=== PATIENT | male | born 1945 | race Caucasian/White ===

== ENCOUNTER → 2016-12-04 | Outpatient (CLI) | payer MEDICARE, BC ==
--- NOTE | 2016-12-05 06:54 | US ---
EXAMINATION TYPE: US kidneys/renal and bladder DATE OF EXAM: 12/04/2016 COMPARISON: NONE CLINICAL HISTORY: R94.4 Abnormal Results Of Function Study Of Kidney. EXAM MEASUREMENTS: Right Kidney: 11.9 x 5.7 x 4.8 cm Left Kidney: 12.9 x 5.8 x 4.7 cm Right Kidney: no evidence of hydronephrosis Left Kidney: enlarged Bladder: diverticula noted Bilateral Jets seen: no IMPRESSION: 1. NO EVIDENCE OF HYDRONEPHROSIS. 2. LEFT-SIDED HUTCH-LIKE DIVERTICULUM OF THE BLADDER.
== END | disposition home or self-care (01) ==
LOC: RADUSWWP 15:27
PROVIDERS: ATTEND Internal Medicine
DX: N32.3 Diverticulum of bladder (principal)
CPT/HCPCS: 76770

== ENCOUNTER → 2016-12-18 | Outpatient (CLI) | payer MEDICARE, BC ==
--- NOTE | 2016-12-18 10:58 | MR ---
EXAMINATION TYPE: MR brain and iac wo/w con DATE OF EXAM: 12/18/2016 COMPARISON: NONE HISTORY: Hearing loss, Acoustic Neuroma TECHNIQUE: Multiplanar, multisequence images of the brain and brainstem is performed without and with IV contras t, utilizing 20 mL intravenous MultiHance. Small [id number] high-resolution images obtained through the internal auditory canals. FINDINGS: Diffusion weighted images demonstrate no evidence of a recent infarct or other diffusion ab normality. There is no extra-axial fluid collection. Periventricular white matter shows confluent an d scattered hyperintensities on inversion recovery and T2-weighted sequences. Some increased signal a lso present within the laurent bilaterally. Cortical atrophy is noted. The ventricular system and cister nal spaces are normal in size and appearance. Midline structures demonstrate normal morphology. The craniocervical junction appears within normal limits. Post contrast images demonstrate no abnormal enhancement. The dural venous sinuses appear pa tent. The visualized sinuses are remarkable for inflammatory change within the bilateral maxillary si nus, sphenoid sinus, ethmoid air cells, mucosal thickening in the frontal sinus, inflammatory change in the mastoid air cells on the left and the globes are intact. There is no cerebellopontine angle mass, no abnormal enhancement along the internal auditory canals. Fluid signal present in the maxilla along the midline may represent embryologic remnant, possible whitney opalatine cyst measuring 12 mm anteriorly. IMPRESSION: Nonspecific white matter demyelination may be due to chronic small vessel ischemia. Sinus disease, correlate for mastoiditis on the left. Additional findings above
== END | disposition home or self-care (01) ==
LOC: RADMRIMAIN 08:27
PROVIDERS: ATTEND Otolaryngology
DX: D33.3 Benign neoplasm of cranial nerves (principal)
CPT/HCPCS: 70553

== ENCOUNTER → 2016-12-25 | Outpatient (CLI) | payer MEDICARE, BC ==
[2016-12-25 09:42] LABS: Blood Urea Nitrogen 17 mg/dL (9-20); Non-African American GFR(MDRD) >60 (>60 ml/min/1.73 sqM)
== END | disposition home or self-care (01) ==
LOC: LABWHC1 08:49
PROVIDERS: ATTEND Ophthalmology
DX: H53.469 Homonymous bilateral field defects, unspecified side (principal)
CPT/HCPCS: 36415; 82565; 84520

== ENCOUNTER 2017-02-16 08:04 | Inpatient (IN) | payer MEDICARE, BC ==
[2017-02-16] MEDS ORDERED: ONDANSETRON 4 MG/2 ML VIAL IVP STA (08:18)
[2017-02-16] MEDS ORDERED: SODIUM CHLORIDE 0.9% 500 ML IV STA (08:18)
[2017-02-16] MEDS ORDERED: RX INFO: IV CONTRAST WAS GIVEN 1 EACH MISC MISCELLANE PRN (08:18)
--- NOTE | 2017-02-16 08:25 | ED ---
General Adult HPI - General Chief complaint: Abdominal Pain Stated complaint: Abd Pain Time Seen by Provider: 02/16/17 08:05 Source: patient, RN notes reviewed Mode of arrival: ambulatory Limitations: no limitations - History of Present Illness Initial comments: This is a 71-year-old male presents to the emergency department complaining of right mid abdominal pain. Patient states started about a week ago and lasted about a day and then went away. Patient states last night he started having the same pain on the right mid abdomen and it continues his morning. Patient states it makes him nauseated and he vomited one time. Patient denies any diarrhea. Patient states his last bowel movement was yesterday. Patient denies any fever or chills. Patient states she's lost his appetite and was unable to eat dinner last night. Patient denies any chest pain shortness of breath or difficulty breathing. Patient denies any lightheadedness or dizziness. Patient states he had cholecystectomy done in October. - Related Data Home Medications Medication Instructions Recorded Confirmed Allopurinol [Zyloprim] 300 mg PO DAILY 02/16/17 02/16/17 Altoprev 40 mg PO DAILY 02/16/17 02/16/17 Cyanocobalamin (Vitamin B-12) 1,000 mcg PO DAILY 02/16/17 02/16/17 [Vitamin B-12] Multivitamins, Thera [Multivitamin 1 tab PO DAILY 02/16/17 02/16/17 (formulary)] Timolol [Betimol 0.5% Ophth Soln] 1 drop BOTH EYES DAILY 02/16/17 02/16/17 Triamcinolone Acetonide [Nasacort] 1 - 2 spray EA NOSTRIL DAILY 02/16/17 Allergies Allergy/AdvReac Type Severity Reaction Status Date / Time ciprofloxacin [From Cipro] Allergy Rash/Hives Verified 02/16/17 08:24 Review of Systems ROS Statement: Those systems with pertinent positive or pertinent negative responses have been documented in the HPI. ROS Other: All systems not noted in ROS Statement are negative. Past Medical History Past Medical History: Diabetes Mellitus History of Any Multi-Drug Resistant Organisms: None Reported Past Surgical History: Cholecystectomy Additional Past Surgical History / Comment(s): ear Past Psychological History: No Psychological Hx Reported Smoking Status: Former smoker Past Alcohol Use History: None Reported Past Drug Use History: None Reported General Exam - General Exam Comments Initial Comments: GENERAL: Patient is well-developed and well-nourished. Patient is nontoxic and well- hydrated and is in mild distress. ENT: Neck is soft and supple. No significant lymphadenopathy is noted. Oropharynx is clear. Moist mucous membranes. Neck has full range of motion without eliciting any pain. EYES: The sclera were anicteric and conjunctiva were pink and moist. Extraocular movements were intact and pupils were equal round and reactive to light. Eyelids were unremarkable. PULMONARY: Unlabored respirations. Good breath sounds bilaterally. No audible rales rhonchi or wheezing was noted. CARDIOVASCULAR: There is a regular rate and rhythm without any murmurs gallops or rubs. ABDOMEN: Abdominal tenderness in the right mid abdomen no rebound SKIN: Skin is clear with no lesions or rashes and otherwise unremarkable. NEUROLOGIC: Patient is alert and oriented x3. Cranial nerves II through XII are grossly intact. Motor and sensory are also intact. Normal speech, volume and content. Symmetrical smile. MUSCULOSKELETAL: Normal extremities with adequate strength and full range of motion. No lower extremity swelling or edema. No calf tenderness. LYMPHATICS: No significant lymphadenopathy is noted PSYCHIATRIC: Normal psychiatric evaluation. Normal interpersonal interactions appears functionally intact in deals appropriately with others. No signs of depression. No signs of anxiety. Limitations: no limitations Course Vital Signs 02/16/17 02/16/17 02/16/17 08:06 08:18 10:48 Temperature 97.6 F Pulse Rate 110 H 106 H 101 H Respiratory 18 17 17 Rate Blood Pressure 79/53 148/87 138/83 O2 Sat by Pulse 98 98 99 Oximetry Medical Decision Making - Medical Decision Making I spoke with Dr. Posey he accepted the patient and I counseled Dr. Johnson for medical management - Lab Data Result diagrams: 02/16/17 08:31 02/16/17 08:31 Lab Results 02/16/17 02/16/17 02/16/17 Range/Units 08:31 08:31 08:31 WBC 16.6 H (3.8-10.6) k/uL RBC 4.68 (4.30-5.90) m/uL Hgb 13.9 (13.0-17.5) gm/dL Hct 41.0 (39.0-53.0) % MCV 87.6 (80.0-100.0) fL MCH 29.6 (25.0-35.0) pg MCHC 33.8 (31.0-37.0) g/dL RDW 13.2 (11.5-15.5) % Plt Count 293 (150-450) k/uL Neutrophils % 86 % Lymphocytes % 8 % Monocytes % 4 % Eosinophils % 1 % Basophils % 0 % Neutrophils # 14.3 H (1.3-7.7) k/uL Lymphocytes # 1.2 (1.0-4.8) k/uL Monocytes # 0.7 (0-1.0) k/uL Eosinophils # 0.2 (0-0.7) k/uL Basophils # 0.1 (0-0.2) k/uL Sodium 138 (137-145) mmol/L Potassium 4.6 (3.5-5.1) mmol/L Chloride 103 (98-107) mmol/L Carbon Dioxide 19 L (22-30) mmol/L Anion Gap 16 mmol/L BUN 15 (9-20) mg/dL Creatinine 1.05 (0.66-1.25) mg/dL Est GFR (MDRD) Af Amer >60 (>60 ml/min/1.73 sqM) Est GFR (MDRD) Non-Af >60 (>60 ml/min/1.73 sqM) Glucose 158 H (74-99) mg/dL Plasma Lactic Acid Riccardo 1.5 (0.7-2.0) mmol/L Calcium 9.9 (8.4-10.2) mg/dL Total Bilirubin 1.1 (0.2-1.3) mg/dL AST 25 (17-59) U/L ALT 28 (21-72) U/L Alkaline Phosphatase 89 (38-126) U/L Total Protein 7.4 (6.3-8.2) g/dL Albumin 4.3 (3.5-5.0) g/dL Amylase 72 (30-110) U/L Lipase 192 (23-300) U/L Disposition Clinical Impression: Duodenal ulcer perforation Disposition: ADMITTED IP TO THIS [facility] Referrals: Israel Johnson MD [Primary Care Provider] - 1-2 days Time of Disposition: 11:00
[2017-02-16 09:03] LABS: ALT 28 U/L (21-72); AST 25 U/L (17-59); Alkaline Phosphatase 89 U/L (38-126); Amylase 72 U/L (30-110); Anion Gap 16 mmol/L; Blood Urea Nitrogen 15 mg/dL (9-20); Calcium 9.9 mg/dL (8.4-10.2); Carbon Dioxide 19 mmol/L (22-30); Chloride 103 mmol/L (98-107); Glucose 158 mg/dL (74-99); Non-African American GFR(MDRD) >60 (>60 ml/min/1.73 sqM); Potassium 4.6 mmol/L (3.5-5.1); Sodium 138 mmol/L (137-145); Total Bilirubin 1.1 mg/dL (0.2-1.3); Total Protein 7.4 g/dL (6.3-8.2)
[2017-02-16 09:40] LABS: Basophils # (A) 0.1 k/uL (0-0.2); Basophils % (A) 0 %; CH 29.1; CHCM 33.4; Eosinophils # (A) 0.2 k/uL (0-0.7); Eosinophils % (A) 1 %; HDW 2.91; HGB 13.9 gm/dL (13.0-17.5); Luc # (Auto) 0.09; Luc % (Auto) 1; Lymphocytes # (A) 1.2 k/uL (1.0-4.8); Lymphocytes % (A) 8 %; MCH 29.6 pg (25.0-35.0); MCHC 33.8 g/dL (31.0-37.0); MCV 87.6 fL (80.0-100.0); Monocytes # (A) 0.7 k/uL (0-1.0); Monocytes % (A) 4 %; Neutrophils # (A) 14.3 k/uL (1.3-7.7); Neutrophils % (A) 86 %; RBC 4.68 m/uL (4.30-5.90); RDW 13.2 % (11.5-15.5); WBC 16.6 k/uL (3.8-10.6); WBC (Perox) 16.06
[2017-02-16] MEDS ORDERED: PIPERACILLIN-TAZOBACTAM 3.375 GM in DEXTROSE/WATER 1 50ML.BAG IVPB STA (10:45)
--- NOTE | 2017-02-16 10:46 | CT ---
EXAMINATION TYPE: CT abdomen pelvis w con DATE OF EXAM: 02/16/2017 COMPARISON: NONE HISTORY: right sided abdominal pain X 1 week. hx of marguerite in October. CT DLP: 1829.1 mGycm CONTRAST: CT scan of the abdomen and pelvis is performed without Oral Contrast and with IV Contrast, patient in jected with 100 mL of Omnipaque 300. FINDINGS: LUNG BASES-: No visible nodule. No infiltrate. LIVER/GB: Cholecystectomy clips identified. Ascites about the liver edge. No space occupying hepati c lesion. Biliary tree is of normal caliber. PANCREAS: No inflammation. No distinct mass. SPLEEN: No splenic enlargement. No lesion seen. ADRENALS: No nodule. No thickening. KIDNEYS/BLADDER: No hydronephrosis. No nephrolithiasis. No disctinct renal mass. Urinary bladder g rossly unremarkable. BOWEL: Noted is wall thickening and ill-definition of the descending portion of the duodenum. There i s adjacent fluid noted as well as 2 or 3 bubbles of free air within the gallbladder fossa. The gallbl adder is surgically absent. In addition there is a bubble of free air identified on image 16 anterior to the liver. Ulcer disease with small perforation difficult to exclude. Strict clinical correlation is advised. The colon and remainder small bowel are within normal limits. GENITAL ORGANS: No gross abnormality. LYMPH NODES: No greater than 1cm abdominal or pelvic lymph nodes are appreciated. AORTA: No significant abnormality. OSSEOUS STRUCTURES: No significant abnormality is seen. OTHER: Free fluid is noted within the pelvis. Fat-containing umbilical hernia. IMPRESSION: 1. Duodenal ulcer disease with small perforation is suspected. As noted there are several small foci of free air. 2. Free fluid as discussed. Comment: These findings were discussed with Dr. Bell at the workstation.
[2017-02-16] MEDS ORDERED: PANTOPRAZOLE 40 MG/10 ML VIAL IVP STA (10:50)
[2017-02-16] MEDS ORDERED: SODIUM CHLORIDE 0.9% 1,000 ML IV ONE ×2 (11:00→11:02)
[2017-02-16] MEDS ORDERED: ONDANSETRON 4 MG/2 ML VIAL IVP PRN (11:03)
[2017-02-16] MEDS: HYDROmorphone 1 MG/ML 1 ML SYRINGE IVP PRN ×2 (11:46→20:34)
--- NOTE | 2017-02-16 14:34 | P.GSHP ---
History of Present Illness H&P Date: 02/16/17 Chief Complaint: Abdominal pain 71-year-old male presented to the emergency room with a chief complaint of developing right upper quadrant abdominal pain radiating to the midsternal area. Patient puts his hands to the right upper abdominal wall as to the reference point is to were the pain is. Patient stated the pain started about a week ago was intermittent would come and go. Patient states that the night before coming into the emergency room he woke up in the middle of the night the pain was symptomatic felt nauseated and vomited. Stated there was no change in bowel habits. Patient states was no fever chills. Given the above clinical presentation the patient did present to the emergency room to be evaluated. Patient states he lives in [place] 7 months out of the year. He states in October of this year he did have a lap cholecystectomy. Patient states he was told that he had gallstones and they did remove the gallstones with the procedure. Patient states he's also being seen by orthopedic service in [place] and plans on returning to [place] to have bilateral knee replacements done in the fall. Patient states he was told by the orthopedic surgeon in [place] that he needed to lose 50 pounds before he would agree to do the knee surgery. Patient states he did lose 50 pounds over summer intentionally. Patient states he takes no [id number] analgesics does use Zyloprim 3 mg daily. Patient states his last colonoscopy was approximately 3 years ago done in [place] and was told there were no acute findings. To the patient's knowledge she has never had an EGD. Patient denies any prior episodes. In the emergency room the patient did have computed tomography scan of the abdomen pelvis with contrast reviewing the report it showed wall thickening and ill - definition of the descending portion of the duodenum. Adjacent fluid noted as well as 2 or 3 bubbles of free air within the gallbladder. Gallbladder surgically absent. Duodenal Ulcer area with small perforation difficult to exclude. A nasogastric tube is currently in place connected to intermittent suction moderate amount of bile secretions noted. Patient continues to report having abdominal discomfort. It is noted that the patient is hard of hearing wears no hearing aid - Review of Systems Comment: Essentially unremarkable except as mentioned in the present illness Past Medical History Past Medical History: Diabetes Mellitus History of Any Multi-Drug Resistant Organisms: None Reported Past Surgical History: Cholecystectomy Additional Past Surgical History / Comment(s): ear Past Psychological History: No Psychological Hx Reported Smoking Status: Former smoker Past Alcohol Use History: None Reported Past Drug Use History: None Reported Medications and Allergies Home Medications Medication Instructions Recorded Confirmed Type Allopurinol [Zyloprim] 300 mg PO DAILY 02/16/17 02/16/17 History Altoprev 40 mg PO DAILY 02/16/17 02/16/17 History Cyanocobalamin (Vitamin B-12) 1,000 mcg PO DAILY 02/16/17 02/16/17 History [Vitamin B-12] Multivitamins, Thera [Multivitamin 1 tab PO DAILY 02/16/17 02/16/17 History (formulary)] Timolol [Betimol 0.5% Ophth Soln] 1 drop BOTH EYES DAILY 02/16/17 02/16/17 History Triamcinolone Acetonide [Nasacort] 1 - 2 spray EA NOSTRIL DAILY 02/16/17 History Allergies Allergy/AdvReac Type Severity Reaction Status Date / Time ciprofloxacin [From Cipro] Allergy Rash/Hives Verified 02/16/17 08:24 Surgical - Exam Vital Signs Temp Pulse Resp BP Pulse Ox 97.6 F 110 H 18 79/53 98 02/16/17 08:06 02/16/17 08:06 02/16/17 08:06 02/16/17 08:06 02/16/17 08:06 GENERAL APPEARANCE: Pleasant 71-year-old male patient is alert, oriented 3, in no acute distress. Sitting up in bed VITAL SIGNS: Reviewed HEENT: Head is normocephalic and atraumatic. Pupils are equal and reactive. The nares are patent. Oropharynx is clear without lesions. NECK: Supple without lymphadenopathy. Traches midline. HEART: S1, S2. Regular rate and rhythm denying any chest pain no murmur noted. LUNGS: No crackles or wheezes are heard. Adequate air bilaterally no shortness of breath at rest or conversation no cough noted on room air sats greater than 95% ABDOMEN: Soft, diffuse tenderness across the abdominal wall bowel tones present , slightly distended with good bowel sounds. No peritoneal signs. No palpable organomegaly or masses. EXTREMITIES: Normal skin color and turgor. No cyanosis, rash, ulceration, clubbing or edema. Radial pedal pulses are 2/4 bilaterally. NEUROLOGICAL: No focal deficits. Strength and sensation are grossly intact. Results - Labs 02/16/17 08:31 02/16/17 08:31 Abnormal Lab Results - Last 24 Hours (Table) 02/16/17 02/16/17 Range/Units 08:31 08:31 WBC 16.6 H (3.8-10.6) k/uL Neutrophils # 14.3 H (1.3-7.7) k/uL Carbon Dioxide 19 L (22-30) mmol/L Glucose 158 H (74-99) mg/dL Diabetes panel 02/16/17 Range/Units 08:31 Sodium 138 (137-145) mmol/L Potassium 4.6 (3.5-5.1) mmol/L Chloride 103 (98-107) mmol/L Carbon Dioxide 19 L (22-30) mmol/L BUN 15 (9-20) mg/dL Creatinine 1.05 (0.66-1.25) mg/dL Glucose 158 H (74-99) mg/dL Calcium 9.9 (8.4-10.2) mg/dL AST 25 (17-59) U/L ALT 28 (21-72) U/L Alkaline Phosphatase 89 (38-126) U/L Total Protein 7.4 (6.3-8.2) g/dL Albumin 4.3 (3.5-5.0) g/dL Calcium panel 02/16/17 Range/Units 08:31 Calcium 9.9 (8.4-10.2) mg/dL Albumin 4.3 (3.5-5.0) g/dL Pituitary panel 02/16/17 Range/Units 08:31 Sodium 138 (137-145) mmol/L Potassium 4.6 (3.5-5.1) mmol/L Chloride 103 (98-107) mmol/L Carbon Dioxide 19 L (22-30) mmol/L BUN 15 (9-20) mg/dL Creatinine 1.05 (0.66-1.25) mg/dL Glucose 158 H (74-99) mg/dL Calcium 9.9 (8.4-10.2) mg/dL Adrenal panel 02/16/17 Range/Units 08:31 Sodium 138 (137-145) mmol/L Potassium 4.6 (3.5-5.1) mmol/L Chloride 103 (98-107) mmol/L Carbon Dioxide 19 L (22-30) mmol/L BUN 15 (9-20) mg/dL Creatinine 1.05 (0.66-1.25) mg/dL Glucose 158 H (74-99) mg/dL Calcium 9.9 (8.4-10.2) mg/dL Total Bilirubin 1.1 (0.2-1.3) mg/dL AST 25 (17-59) U/L ALT 28 (21-72) U/L Alkaline Phosphatase 89 (38-126) U/L Total Protein 7.4 (6.3-8.2) g/dL Albumin 4.3 (3.5-5.0) g/dL Assessment and Plan Plan: Impression Present on admission intractable nausea vomiting right mid abdominal pain suspect due to a duodenal ulcer disease with small perforation suspected per CAT scan abdomen and pelvis History of a recent lap cholecystectomy in October 2016 in [place] Hearing deficit Present on admission leukocytosis tachycardic hypotensive meets SIRS criteria early sepsis, ruled out unclear etiology Hypertension essential Plan Continue the nasal gastric tube connected to suction monitor the response Protonix 40 IV twice a day keep npo while NG tube in place Pain control DVT and GI prophylaxis IV fluid for hydration Repeat labs in the morning IV Zosyn as ordered Further recommendations pending will follow surgical course The above impression and plan of care have been discussed and directed by signing physician. Ramona Kan nurse practitioner acting as scribe for signing physician.
--- NOTE | 2017-02-16 16:25 | P.CONS ---
History of Present Illness - History of Present Illness History of present illness Patient is a 71-year-old gentleman who came to the emergency room earlier today with abdominal pain and episodes of nausea and vomiting. Apparently patient had an episode about a week ago of repeat nausea, vomiting and abdominal discomfort that cleared over a 1-2 day period. And generally subsided until the night before admission when the pain and nausea redeveloped. No definite fever or chills associated with this. He did have a bowel movement yesterday. No hematochezia, melena or hematemesis associated with this at this time. Past medical history The patient did have a cholecystectomy performed earlier this year while in [place] before his return to [place]. He does have history of elevated cholesterol. Glaucoma Previous tobacco usage but quit back in the . Patient has had elevated blood sugars in the past but has lost weight and they have improved History of previous asbestos exposure History of gout No history of myocardial infarction or stroke. History of colonoscopy back in 2014. Positive diverticuli but no polyps. Other surgeries include a mastoidectomy Also post uvulopalatopharyngectomy Medications: History of ALLERGY with rash/hives to ciprofloxacin Home medications: Allopurinol 300 mg daily Altoprev 40 mg daily Vitamin B12 thousand micrograms daily Multiple vitamins 1 a day Timolol 0.5% one drop in both eyes daily Nasacort one to 2 sprays in each nostril daily Review of systems: Patient denies any unusual headaches. No visual disturbances. No unusual cough or hemoptysis. Abdominal pain as stated in the history of present illness. Patient does have chronic knee pain. No unusual recurrent edema. Family history: Positive for diabetes and previous CVAs. Social history: Once again patient is a previous smoker. Quit in the Occasional alcohol use. Patient is retired and lives in [place] during the summer and [place] during the winter months with his . Physical examination: Temperature is 98.2 with a pulse of 98 and respirations 16. Blood pressure is 122/78 and he is 98% saturated on room air. Head and neck exam otherwise is unremarkable although there is presence of NG tube. Neck is supple without adenopathy, bruits or thyromegaly. Lungs are clear to auscultation. Heart tones are regular without murmurs. Abdomen reveals some right upper quadrant discomfort. No rebound or guarding noted. No masses. Rectal and scrotal exam deferred. No unusual distal extremity edema. Cranial nerves intact. No focal weakness noted. Patient is alert and oriented. Laboratory White count is elevated at 16.6 with a hemoglobin 13.9 and platelet count of 293. Sodium is 130 with potassium 4.6. Carbon dioxide is down at 19. BUN of 15 with creatinine 1.05 given him a GFR greater than 60. A random blood sugar is 158. Venous lactic acid level was 1.5 Other liver function tests along with a lipase and amylase were normal. A computed tomography scan of the abdomen and pelvis Suspected of small one ulcer with perforation with the presence of free air. Impressions: 1. Perforated duodenal ulcer with abdominal pain and refractory nausea and vomiting. 2. History of type 2 diabetes although controlled with diet and weight loss prior to admission. 3. History of cholecystectomy performed earlier this year in [place]. 4. History of obesity but with recent weight loss 5. Hypercholesterolemia 6. Previous surgeries as stated above. 7. History of previous asbestos exposure. Plans: Patient is on IV hydration along with antibiotics and analgesics as needed. He has been seen and evaluated by surgery. He will continue with NG tube suction. We will also add Accu-Cheks and coverage if needed. Discussed with the patient and at bedside along with the nursing staff. Dr. Chacho Medina on-call for me over the weekend if any concerns or problems should arise. Past Medical History Past Medical History: Diabetes Mellitus History of Any Multi-Drug Resistant Organisms: None Reported Past Surgical History: Cholecystectomy Additional Past Surgical History / Comment(s): ear Past Psychological History: No Psychological Hx Reported Smoking Status: Former smoker Past Alcohol Use History: None Reported Past Drug Use History: None Reported Medications and Allergies Home Medications Medication Instructions Recorded Confirmed Type Allopurinol [Zyloprim] 300 mg PO DAILY 02/16/17 02/16/17 History Altoprev 40 mg PO DAILY 02/16/17 02/16/17 History Cyanocobalamin (Vitamin B-12) 1,000 mcg PO DAILY 02/16/17 02/16/17 History [Vitamin B-12] Multivitamins, Thera [Multivitamin 1 tab PO DAILY 02/16/17 02/16/17 History (formulary)] Timolol [Betimol 0.5% Ophth Soln] 1 drop BOTH EYES DAILY 02/16/17 02/16/17 History Triamcinolone Acetonide [Nasacort] 1 - 2 spray EA NOSTRIL DAILY 02/16/17 History Allergies Allergy/AdvReac Type Severity Reaction Status Date / Time ciprofloxacin [From Cipro] Allergy Rash/Hives Verified 02/16/17 08:24 Physical Exam Vitals: Vital Signs Temp Pulse Pulse Resp BP BP Pulse Ox 02/16/17 16:02 98.2 F 98 16 122/78 98 02/16/17 15:13 98.5 F 93 18 105/57 98 02/16/17 13:20 101 H 19 135/68 96 02/16/17 12:12 98.1 F 99 16 104/64 97 02/16/17 10:48 101 H 17 138/83 99 02/16/17 08:18 106 H 17 148/87 98 02/16/17 08:06 97.6 F 110 H 18 79/53 98 Intake and Output 02/16/17 02/16/17 02/16/17 06:59 14:59 22:59 Other: Weight 104.326 kg Patient Weight 02/17/17 06:59 Weight 104.326 kg Results CBC & Chem 7: 02/16/17 08:31 02/16/17 08:31 Labs: Abnormal Lab Results - Last 24 Hours (Table) 02/16/17 02/16/17 Range/Units 08:31 08:31 WBC 16.6 H (3.8-10.6) k/uL Neutrophils # 14.3 H (1.3-7.7) k/uL Carbon Dioxide 19 L (22-30) mmol/L Glucose 158 H (74-99) mg/dL
[2017-02-16] MEDS: PANTOPRAZOLE 40 MG/10 ML VIAL IVP SCH (19:55)
[2017-02-16] MEDS: PIPERACILLIN-TAZOBACTAM 3.375 GM in DEXTROSE/WATER 1 50ML.BAG IVPB SCH (19:55)
[2017-02-17 00:30] LABS: Glucose,Whole Blood 145 mg/dL (75-99)
[2017-02-17] MEDS: HYDROmorphone 1 MG/ML 1 ML SYRINGE IVP PRN ×4 (02:17→19:41)
[2017-02-17] MEDS: PIPERACILLIN-TAZOBACTAM 3.375 GM in DEXTROSE/WATER 1 50ML.BAG IVPB SCH ×3 (05:03→20:42)
[2017-02-17 06:15] LABS: Glucose,Whole Blood 118 mg/dL (75-99)
[2017-02-17 07:03] LABS: Basophils # (A) 0.1 k/uL (0-0.2); Basophils % (A) 0 %; CH 29.9; CHCM 33.7; Eosinophils % (A) 0 %; HCT 39.5 % (39.0-53.0); HGB 12.7 gm/dL (13.0-17.5); Luc # (Auto) 0.11; Luc % (Auto) 1; Lymphocytes # (A) 0.8 k/uL (1.0-4.8); Lymphocytes % (A) 5 %; MCH 28.8 pg (25.0-35.0); MCHC 32.2 g/dL (31.0-37.0); MCV 89.3 fL (80.0-100.0); Mean Platelet Volume 7.8; Monocytes # (A) 0.7 k/uL (0-1.0); Monocytes % (A) 4 %; Neutrophils # (A) 14.9 k/uL (1.3-7.7); Neutrophils % (A) 90 %; RBC 4.42 m/uL (4.30-5.90); RDW 13.9 % (11.5-15.5); WBC 16.6 k/uL (3.8-10.6); WBC (Perox) 15.84
[2017-02-17] MEDS: PANTOPRAZOLE 40 MG/10 ML VIAL IVP SCH ×2 (07:22→20:51)
[2017-02-17 07:31] LABS: ALT 35 U/L (21-72); AST 19 U/L (17-59); Alkaline Phosphatase 70 U/L (38-126); Anion Gap 11 mmol/L; Blood Urea Nitrogen 20 mg/dL (9-20); Calcium 9.3 mg/dL (8.4-10.2); Carbon Dioxide 24 mmol/L (22-30); Chloride 104 mmol/L (98-107); Glucose 138 mg/dL (74-99); Non-African American GFR(MDRD) >60 (>60 ml/min/1.73 sqM); Potassium 4.5 mmol/L (3.5-5.1); Sodium 139 mmol/L (137-145); Total Protein 5.9 g/dL (6.3-8.2)
--- NOTE | 2017-02-17 10:54 | P.PN ---
Progress Note - Text The patient is a 71 year old gentleman who was admitted yesterday through the emergency room with the abdominal pain and found on CAT scan to have what appears to be a perforated duodenal ulcer. The patient has been seen by surgery and has been treated with IV antibiotics, IV fluids, analgesics, NG tube suction. This morning he states he feels somewhat better but still having abdominal discomfort. Has not been passing any gas. No chest pain or shortness of breath. Patient does have comorbidities with history of obesity, type 2 diabetes, history of remote asbestos exposure, and previous cholecystectomy earlier this year in [place]. Vital signs reveal temperature of 97.8 with a pulse of 94 and respirations 16, nonlabored and blood pressure 121/71 and he is 97% saturated on room air. Lung and heart examination is clear. He is alert and oriented. Abdomen is somewhat obese and does show some tenderness without rebound or guarding on the right mid upper quadrant area. Bowel sounds are diminished. No unusual edema. Neurologically patient is hard of hearing. Chronic. No other focal neurological deficits noted. Labs White count is still 16.6 with a hemoglobin 12.7 and a platelet count of 275. Basic metabolic panel was unremarkable. Random blood sugar 138. He does have a low albumin this morning of 3.3. EKG showed a sinus rhythm without acute ischemic changes. Impressions and plans: At this point patient appears generally stable clinically. Vital signs remain good. Discussed with patient possibility of surgical intervention if deemed necessary as per surgery. Patient understands. At this time I see no definite contraindication if necessary. Case discussed with nursing staff. Dr. Chacho Medina on-call for me over the weekend if any concerns or problems.
[2017-02-17] MEDS: TIMOLOL 0.5% OPHTH DROPS 5 ML BTL BOTH EYES SCH (11:03)
[2017-02-17 11:57] LABS: Glucose,Whole Blood 117 mg/dL (75-99)
--- NOTE | 2017-02-17 14:20 | P.PN ---
Subjective Principal diagnosis: Peptic ulcer disease This a 71-year-old male who is admitted through the emergency room yesterday with abdominal pain. Patient was found have evidence of duodenitis and peptic ulcer disease. The patient states he feels better today. Objective - Vital Signs Vital signs: Vital Signs Temp 97.8 F 02/17/17 06:52 Pulse 94 02/17/17 06:52 Resp 16 02/17/17 06:52 BP 121/71 02/17/17 06:52 Pulse Ox 97 02/17/17 06:52 Intake & Output 02/16/17 02/17/17 02/17/17 18:59 06:59 18:59 Intake Total 1650 800 Output Total 150 Balance 1650 650 Weight 104.326 kg Intake: Intake, IV Titration 1650 800 Amount Piperacillin-Tazobactam 3 50 .375 gm In Dextrose/Water 1 50ml.bag @ 12.5 mls/hr IVPB Q8H [facility] Rx#: [id number] Sodium Chloride 0.9% 1, 1600 800 000 ml @ 100 mls/hr IV . Q10H [facility] Rx#:[id number] Output: Urine 150 Other: Voiding Method Toilet Toilet Toilet Urinal Urinal Urinal # Voids 3 2 - Constitutional General appearance: Present: average body habitus - Gastrointestinal Gastrointestinal Comment(s): Abdomen is soft. There is no significant tenderness. There is no rebound or guarding. The patient does not have any significant bowel function. - Labs CBC & Chem 7: 02/17/17 06:35 02/17/17 06:35 Labs: Abnormal Lab Results - Last 24 Hours (Table) 02/17/17 02/17/17 02/17/17 Range/Units 00:21 06:10 06:35 WBC 16.6 H (3.8-10.6) k/uL Hgb 12.7 L (13.0-17.5) gm/dL Neutrophils # 14.9 H (1.3-7.7) k/uL Lymphocytes # 0.8 L (1.0-4.8) k/uL Glucose (74-99) mg/dL POC Glucose (mg/dL) 145 H 118 H (75-99) mg/dL Total Protein (6.3-8.2) g/dL Albumin (3.5-5.0) g/dL 02/17/17 02/17/17 Range/Units 06:35 11:43 WBC (3.8-10.6) k/uL Hgb (13.0-17.5) gm/dL Neutrophils # (1.3-7.7) k/uL Lymphocytes # (1.0-4.8) k/uL Glucose 138 H (74-99) mg/dL POC Glucose (mg/dL) 117 H (75-99) mg/dL Total Protein 5.9 L (6.3-8.2) g/dL Albumin 3.3 L (3.5-5.0) g/dL Assessment and Plan Plan: Peptic ulcer disease with microperforation. Patient continue to receive IV fluids and antibiotics. He will he'll be given some ice chips today. His nasogastric tube will remain.
[2017-02-17] MEDS: LACTATED RINGERS 1,000 ML IV SCH ×2 (16:33→20:50)
[2017-02-17 17:50] LABS: Glucose,Whole Blood 148 mg/dL (75-99)
[2017-02-18 00:22] LABS: Glucose,Whole Blood 133 mg/dL (75-99)
[2017-02-18] MEDS: PIPERACILLIN-TAZOBACTAM 3.375 GM in DEXTROSE/WATER 1 50ML.BAG IVPB SCH ×3 (04:24→20:30)
[2017-02-18] MEDS: HYDROmorphone 1 MG/ML 1 ML SYRINGE IVP PRN ×4 (04:31→20:49)
[2017-02-18] MEDS: LACTATED RINGERS 1,000 ML IV SCH ×2 (04:42→12:57)
[2017-02-18 06:04] LABS: Glucose,Whole Blood 130 mg/dL (75-99)
[2017-02-18] MEDS: TIMOLOL 0.5% OPHTH DROPS 5 ML BTL BOTH EYES SCH (08:52)
[2017-02-18] MEDS: PANTOPRAZOLE 40 MG/10 ML VIAL IVP SCH ×2 (08:52→20:31)
--- NOTE | 2017-02-18 09:08 | P.PN ---
Progress Note - Text The patient is feeling better. He states his pain is improved. He has been and relating the hallway. He is asking about 70. On exam his vital signs are stable. His abdomen soft. There is minimal tenderness in the epigastric area. There is no rebound or guarding. Status post duodenal ulcer with microperforation. Patient has responded to conservative therapy. He'll have his NG tube remained today. We will start him on clear liquids tomorrow.
[2017-02-18 09:17] LABS: Basophils # (A) 0.1 k/uL (0-0.2); Basophils % (A) 0 %; CH 28.4; CHCM 32.1; Eosinophils # (A) 0.6 k/uL (0-0.7); Eosinophils % (A) 3 %; HCT 32.4 % (39.0-53.0); HDW 2.84; HGB 10.9 gm/dL (13.0-17.5); Luc # (Auto) 0.12; Luc % (Auto) 1; Lymphocytes # (A) 0.6 k/uL (1.0-4.8); Lymphocytes % (A) 3 %; MCH 30.1 pg (25.0-35.0); MCHC 33.8 g/dL (31.0-37.0); MCV 89.2 fL (80.0-100.0); Monocytes # (A) 0.8 k/uL (0-1.0); Monocytes % (A) 5 %; Neutrophils # (A) 14.3 k/uL (1.3-7.7); Neutrophils % (A) 87 %; RBC 3.63 m/uL (4.30-5.90); RDW 13.2 % (11.5-15.5); WBC 16.4 k/uL (3.8-10.6)
--- NOTE | 2017-02-18 10:28 | P.PN ---
Progress Note - Text The patient is a 71-year-old gentleman who was admitted 2 days ago through the emergency room with abdominal pain. He was found on computed tomography scan to have what appeared to be perforated duodenal ulcer. Presently he has been on conservative treatment with NG tube suction, IV fluids and antibiotics. The patient was seen by surgery earlier and generally clinically appears to be stable. Patient does have other comorbidities which include his underlying obesity, diabetes, history of remote pulmonary asbestos exposure and he has had a previous cholecystectomy earlier this year. The patient's vital signs are generally stable with a temperature of 97 his pulse is slightly up at 102. Respirations are 16 and nonlabored. Blood pressure is 109/67 and he is 95% saturated on room air. No new clinical exam changes. Labs White count is still elevated at 16.4 with a hemoglobin 10.9 and a platelet count of 247. Last blood sugar was 130. Impressions and plans: Discussed with at bedside. According to surgical note plans are to continue with NG tube suction but possibly remove tomorrow and start patient on clear liquids. We will continue IV fluids and antibiotics. Labs to be drawn tomorrow morning. The patient also on IV proton pump inhibitors at this time. Dr. Chacho Medina on-call over the weekend if any medical problems today.
[2017-02-18 12:01] LABS: Glucose,Whole Blood 134 mg/dL (75-99)
[2017-02-18 17:43] LABS: Glucose,Whole Blood 92 mg/dL (75-99)
[2017-02-19 00:04] LABS: Glucose,Whole Blood 96 mg/dL (75-99)
[2017-02-19] MEDS: PIPERACILLIN-TAZOBACTAM 3.375 GM in DEXTROSE/WATER 1 50ML.BAG IVPB SCH ×3 (03:54→19:31)
[2017-02-19] MEDS: LACTATED RINGERS 1,000 ML IV SCH ×4 (03:55→20:44)
[2017-02-19 06:12] LABS: Glucose,Whole Blood 94 mg/dL (75-99)
[2017-02-19 07:17] LABS: Basophils % (A) 0 %; CH 29.5; CHCM 33.3; Eosinophils # (A) 0.7 k/uL (0-0.7); Eosinophils % (A) 5 %; HCT 32.8 % (39.0-53.0); HGB 10.7 gm/dL (13.0-17.5); Luc # (Auto) 0.11; Luc % (Auto) 1; Lymphocytes # (A) 0.5 k/uL (1.0-4.8); Lymphocytes % (A) 4 %; MCH 29.1 pg (25.0-35.0); MCHC 32.7 g/dL (31.0-37.0); MCV 89.1 fL (80.0-100.0); Mean Platelet Volume 7.7; Monocytes # (A) 0.7 k/uL (0-1.0); Monocytes % (A) 6 %; Neutrophils # (A) 10.1 k/uL (1.3-7.7); Neutrophils % (A) 84 %; RBC 3.68 m/uL (4.30-5.90); RDW 13.7 % (11.5-15.5); WBC 12.1 k/uL (3.8-10.6); WBC (Perox) 12.46
[2017-02-19 07:34] LABS: Anion Gap 9 mmol/L; Blood Urea Nitrogen 21 mg/dL (9-20); Calcium 8.9 mg/dL (8.4-10.2); Carbon Dioxide 25 mmol/L (22-30); Chloride 105 mmol/L (98-107); Glucose 107 mg/dL (74-99); Non-African American GFR(MDRD) >60 (>60 ml/min/1.73 sqM); Potassium 3.4 mmol/L (3.5-5.1); Sodium 139 mmol/L (137-145)
--- NOTE | 2017-02-19 08:09 | P.PN ---
Progress Note - Text The patient is a 71-year-old gentleman who was admitted to 3 days previous to the emergency room with abdominal pain. The patient was found on computed tomography scan of the abdomen to have a perforated duodenal ulcer. Considered a microperforation. Patient has been on NG tube suction along with IV fluids and antibiotics and proton pump inhibitors. Please refer to surgical progress notes. Comorbidities include obesity, type 2 diabetes, history of remote asbestos exposure and previous cholecystectomy earlier this year in [place]. This morning the patient still complains of the mid abdominal discomfort. Currently he did have a loose small amount of stool. No chest pain or shortness of breath. Temperature is 98.5 with a pulse of 97 respirations 16. Blood pressures 116/60 and he is 92% saturated on room air. Lung and heart examination is clear. Abdomen is generally soft. No rebound or guarding. Some mild discomfort periumbilical area. No unusual edema. No focal neurological changes. Laboratory values White count was 12.1 with a hemoglobin 10.7 and platelet count of 277 and neutrophils 10.1 Sodium 139 with potassium 3.4. BUN 21 with creatinine 1.12 and blood sugar of 107. Impressions and plans: Patient clinically appears stable and white count is somewhat improved. He is still having some abdominal discomfort. Mildly hypokalemic and we will replace potassium. Await further recommendations from surgery. CBC and BMP for the morning.
[2017-02-19] MEDS: HYDROmorphone 1 MG/ML 1 ML SYRINGE IVP PRN (08:21)
[2017-02-19] MEDS: TIMOLOL 0.5% OPHTH DROPS 5 ML BTL BOTH EYES SCH (08:28)
[2017-02-19] MEDS: PANTOPRAZOLE 40 MG/10 ML VIAL IVP SCH ×2 (08:28→20:44)
[2017-02-19] MEDS: POTASSIUM CHLORIDE 20 MEQ, LIDOCAINE 2% INJ 20 MG in SODIUM CHLORIDE 0.9% 100 ML IVPB SCH ×2 (10:16→16:57)
[2017-02-19 11:52] LABS: Glucose,Whole Blood 97 mg/dL (75-99)
--- NOTE | 2017-02-19 14:34 | P.PN ---
Subjective 71-year-old male being seen this afternoon. Patient currently is sitting up in bed. Patient patient did have the NG tube removed this afternoon. Patient currently is taking ice chips tolerating patient reports no nausea vomiting. Patient states he's having less abdominal bloating. Denies chest pain or shortness of breath. Patient stated he had a small amount of stool this morning was liquid. Patients being followed by surgical service for a CAT scan obtained on admission of the abdomen pelvis suspected a perforated duodenal ulcer with a microperforation Objective - Vital Signs Vital signs: Vital Signs Temp 98.1 F 02/19/17 14:09 Pulse 84 02/19/17 14:09 Resp 16 02/19/17 14:09 BP 109/58 02/19/17 14:09 Pulse Ox 97 02/19/17 14:09 Intake & Output 02/18/17 02/19/17 02/19/17 18:59 06:59 18:59 Intake Total 1050 875 Balance 1050 875 Intake: Intake, IV Titration 1050 875 Amount Lactated Ringers 1,000 ml 1000 875 @ 125 mls/hr IV .Q8H [facility] Rx#:[id number] Piperacillin-Tazobactam 3 50 .375 gm In Dextrose/Water 1 50ml.bag @ 12.5 mls/hr IVPB Q8H [facility] Rx#: [id number] Other: Voiding Method Toilet Toilet Toilet Urinal Urinal Urinal # Voids 2 - Exam GENERAL APPEARANCE: 71-year-old male very hard of hearing wears bilateral hearing aids is alert, oriented, in no acute distress. Currently sitting up in bed taking a clear liquid diet VITAL SIGNS: Reviewed HEENT: Head is normocephalic and atraumatic. Pupils are equal and reactive. The nares are patent. Oropharynx is clear without lesions. NECK: Supple without lymphadenopathy. Traches midline. HEART: S1, S2. Regular rate and rhythm. No murmur noted denying chest pain LUNGS: No crackles or wheezes are heard. On room air adequate air movement ABDOMEN: Soft, slight epigastric tenderness nondistended with good bowel sounds. No peritoneal signs. No palpable organomegaly or masses. States urinating no difficulty EXTREMITIES: Normal skin color and turgor. No cyanosis, rash, ulceration, clubbing or edema. Radial pedal pulses are 2/4 bilaterally. NEUROLOGICAL: No focal deficits. Strength and sensation are grossly intact. - Labs CBC & Chem 7: 02/19/17 06:59 02/19/17 06:59 Labs: Abnormal Lab Results - Last 24 Hours (Table) 02/19/17 02/19/17 Range/Units 06:59 06:59 WBC 12.1 H (3.8-10.6) k/uL RBC 3.68 L (4.30-5.90) m/uL Hgb 10.7 L (13.0-17.5) gm/dL Hct 32.8 L (39.0-53.0) % Neutrophils # 10.1 H (1.3-7.7) k/uL Lymphocytes # 0.5 L (1.0-4.8) k/uL Potassium 3.4 L (3.5-5.1) mmol/L BUN 21 H (9-20) mg/dL Glucose 107 H (74-99) mg/dL Assessment and Plan Plan: Impression Present on admission intractable nausea vomiting right mid abdominal pain suspect due to a duodenal ulcer disease with small micro-perforation suspected per CAT scan abdomen and pelvis History of a recent lap cholecystectomy in October 2016 in [place] Hearing deficit Present on admission leukocytosis tachycardic hypotensive meets SIRS criteria early sepsis, ruled out unclear etiology Hypertension essential Electrolyte hypokalemic Plan Protonix 40 IV twice a day Pain control DVT and GI prophylaxis IV fluid for hydration Repeat labs in the morning IV Zosyn as ordered Potassium to be replaced Further recommendations pending will follow surgical course The above impression and plan of care have been discussed and directed by signing physician. Ramona Kan nurse practitioner acting as scribe for signing physician.
[2017-02-19] MEDS: HYDROcodone/APAP 7.5-325MG 1 EACH TAB PO PRN (16:50)
[2017-02-19 18:17] LABS: Glucose,Whole Blood 102 mg/dL (75-99)
[2017-02-20 00:13] LABS: Glucose,Whole Blood 100 mg/dL (75-99)
[2017-02-20] MEDS: PIPERACILLIN-TAZOBACTAM 3.375 GM in DEXTROSE/WATER 1 50ML.BAG IVPB SCH ×3 (04:03→22:02)
[2017-02-20 05:40] LABS: Glucose,Whole Blood 108 mg/dL (75-99)
[2017-02-20] MEDS: PANTOPRAZOLE 40 MG/10 ML VIAL IVP SCH (07:51)
[2017-02-20] MEDS: TIMOLOL 0.5% OPHTH DROPS 5 ML BTL BOTH EYES SCH (07:51)
[2017-02-20] MEDS: HYDROcodone/APAP 7.5-325MG 1 EACH TAB PO PRN (07:53)
[2017-02-20] MEDS: LACTATED RINGERS 1,000 ML IV SCH ×4 (07:55→22:03)
--- NOTE | 2017-02-20 07:55 | P.PN ---
Progress Note - Text The patient is a 71-year-old gentleman who was admitted 4 days ago through the emergency room with abdominal pain and found subsequently to have a perforated duodenal ulcer on CAT scan. The patient did have NG tube removed yesterday and appears to be tolerating full liquid diet. He states he still having some abdominal pain intermittently. Some slight nausea. He feels that his bowel movements are slowly improving. No chest pain or shortness of breath. Vital signs reveal temperature 98.7 with a pulse 78 respirations 18. Blood pressure is 157/72 and he is 96% saturated on room air. Lung and heart exam was clear and regular. Abdomen is generally soft with positive bowel sounds. He does have some generalized tenderness but no rebound, guarding detected. No unusual edema or neurological changes. Labs from this morning are pending. Impressions and plans Slowly resolving duodenal ulcer with perforation. Further recommendations and treatment pending surgical opinion and results of labs today. Discussed with patient and nursing staff this morning.
[2017-02-20 08:16] LABS: Basophils % (A) 0 %; CH 28.4; CHCM 32.4; Eosinophils # (A) 0.8 k/uL (0-0.7); Eosinophils % (A) 7 %; HCT 31.7 % (39.0-53.0); HDW 2.95; HGB 10.5 gm/dL (13.0-17.5); Luc # (Auto) 0.14; Luc % (Auto) 1; Lymphocytes # (A) 0.9 k/uL (1.0-4.8); Lymphocytes % (A) 8 %; MCH 29.3 pg (25.0-35.0); MCHC 33.2 g/dL (31.0-37.0); MCV 88.2 fL (80.0-100.0); Monocytes # (A) 0.7 k/uL (0-1.0); Monocytes % (A) 7 %; Neutrophils # (A) 8.5 k/uL (1.3-7.7); Neutrophils % (A) 77 %; WBC 11.1 k/uL (3.8-10.6); WBC (Perox) 10.91
[2017-02-20 08:37] LABS: Anion Gap 7 mmol/L; Blood Urea Nitrogen 14 mg/dL (9-20); Calcium 8.4 mg/dL (8.4-10.2); Carbon Dioxide 27 mmol/L (22-30); Chloride 103 mmol/L (98-107); Glucose 102 mg/dL (74-99); Non-African American GFR(MDRD) >60 (>60 ml/min/1.73 sqM); Potassium 3.6 mmol/L (3.5-5.1); Sodium 137 mmol/L (137-145)
--- NOTE | 2017-02-20 13:02 | P.PN ---
Subjective 71-year-old being seen on rounds this morning currently resting comfortably in bed. Tolerating diet. Patient states he continues to have some abdominal discomfort but has improved from admission. Patient reports no chest pain no shortness of breath. States had one bowel movement the day before date urinating with no difficulty Objective - Vital Signs Vital signs: Vital Signs Temp 98.7 F 02/20/17 07:34 Pulse 78 02/20/17 07:34 Resp 18 02/20/17 07:34 BP 157/72 02/20/17 07:34 Pulse Ox 96 02/19/17 21:00 Intake & Output 02/19/17 02/20/17 02/20/17 18:59 06:59 18:59 Intake Total 875 1000 360 Output Total 200 Balance 875 800 360 Intake: Intake, IV Titration 875 1000 Amount Lactated Ringers 1,000 ml 875 1000 @ 125 mls/hr IV .Q8H [facility] Rx#:[id number] Oral 360 Output: Urine 200 Other: Voiding Method Toilet Toilet Toilet Urinal Urinal # Voids 1 1 # Bowel Movements 1 - Exam GENERAL APPEARANCE: 71-year-old male very hard of hearing wears bilateral hearing aids is alert, oriented VITAL SIGNS: Reviewed HEENT: Head is normocephalic and atraumatic. Pupils are equal and reactive. The nares are patent. Oropharynx is clear without lesions. NECK: Supple without lymphadenopathy. Traches midline. HEART: S1, S2. Regular rate and rhythm. No murmur noted denying chest pain LUNGS: No crackles or wheezes are heard. On room air adequate air movement ABDOMEN: Soft, slight epigastric tenderness nondistended with good bowel sounds. No peritoneal signs. No palpable organomegaly or masses. States urinating no difficulty states tolerating diet with no nausea no vomiting no stool EXTREMITIES: Normal skin color and turgor. No cyanosis, rash, ulceration, clubbing or edema. Radial pedal pulses are 2/4 bilaterally. NEUROLOGICAL: No focal deficits. Strength and sensation are grossly intact. - Labs CBC & Chem 7: 02/20/17 07:44 02/20/17 07:44 Labs: Abnormal Lab Results - Last 24 Hours (Table) 02/19/17 02/20/17 02/20/17 Range/Units 17:57 00:09 05:38 WBC (3.8-10.6) k/uL RBC (4.30-5.90) m/uL Hgb (13.0-17.5) gm/dL Hct (39.0-53.0) % Neutrophils # (1.3-7.7) k/uL Lymphocytes # (1.0-4.8) k/uL Eosinophils # (0-0.7) k/uL Glucose (74-99) mg/dL POC Glucose (mg/dL) 102 H 100 H 108 H (75-99) mg/dL 02/20/17 02/20/17 Range/Units 07:44 07:44 WBC 11.1 H (3.8-10.6) k/uL RBC 3.60 L (4.30-5.90) m/uL Hgb 10.5 L (13.0-17.5) gm/dL Hct 31.7 L (39.0-53.0) % Neutrophils # 8.5 H (1.3-7.7) k/uL Lymphocytes # 0.9 L (1.0-4.8) k/uL Eosinophils # 0.8 H (0-0.7) k/uL Glucose 102 H (74-99) mg/dL POC Glucose (mg/dL) (75-99) mg/dL Assessment and Plan Plan: Impression Present on admission intractable nausea vomiting right mid abdominal pain suspect due to a duodenal ulcer disease with small micro-perforation suspected per CAT scan abdomen and pelvis History of a recent lap cholecystectomy in October 2016 in [place] Hearing deficit Present on admission leukocytosis tachycardic hypotensive meets SIRS criteria early sepsis, suspect due to microperforation duodenal ulcer Hypertension essential Electrolyte hypokalemic Plan Protonix 40 po twice a day Pain control . Stop IV dilaudid change to oral analgesic monitor the response DVT and GI prophylaxis IV fluid for hydration Repeat labs in the morning IV Zosyn as ordered Potassium to be replaced Advance diet Increase activity No NSAIDS Further recommendations pending will follow surgical course The above impression and plan of care have been discussed and directed by signing physician. Rmaona Kan nurse practitioner acting as scribe for signing physician.
[2017-02-20 15:54] LABS: Glucose,Whole Blood 128 mg/dL (75-99)
[2017-02-20] MEDS: PANTOPRAZOLE 40 MG TABLET PO SCH (17:24)
[2017-02-20] MEDS: HEPARIN SODIUM,PORCINE 5,000 UNIT/ML 1 ML VIAL SQ SCH ×3 (17:24→23:42)
[2017-02-20 17:40] LABS: Glucose,Whole Blood 95 mg/dL (75-99)
[2017-02-21 00:06] LABS: Glucose,Whole Blood 93 mg/dL (75-99)
[2017-02-21] MEDS: PIPERACILLIN-TAZOBACTAM 3.375 GM in DEXTROSE/WATER 1 50ML.BAG IVPB SCH (04:26)
[2017-02-21] MEDS: HYDROcodone/APAP 7.5-325MG 1 EACH TAB PO PRN (04:39)
[2017-02-21 06:22] LABS: Glucose,Whole Blood 85 mg/dL (75-99)
[2017-02-21] MEDS: TIMOLOL 0.5% OPHTH DROPS 5 ML BTL BOTH EYES SCH (07:45)
[2017-02-21] MEDS: PANTOPRAZOLE 40 MG TABLET PO SCH (07:45)
[2017-02-21] MEDS: HEPARIN SODIUM,PORCINE 5,000 UNIT/ML 1 ML VIAL SQ SCH (07:45)
[2017-02-21 08:02] VITALS: BP 124/71; PULSE 78; RESP 18; TEMP 97.5
[2017-02-21 08:05] LABS: Basophils % (A) 0 %; CH 29.3; CHCM 33.3; Eosinophils # (A) 0.6 k/uL (0-0.7); Eosinophils % (A) 6 %; HCT 33.3 % (39.0-53.0); HDW 2.97; HGB 10.8 gm/dL (13.0-17.5); Luc # (Auto) 0.11; Luc % (Auto) 1; Lymphocytes % (A) 9 %; MCH 28.8 pg (25.0-35.0); MCHC 32.5 g/dL (31.0-37.0); MCV 88.5 fL (80.0-100.0); Mean Platelet Volume 7.6; Monocytes # (A) 0.6 k/uL (0-1.0); Monocytes % (A) 6 %; Neutrophils # (A) 8.1 k/uL (1.3-7.7); Neutrophils % (A) 78 %; RBC 3.76 m/uL (4.30-5.90); RDW 13.9 % (11.5-15.5); WBC 10.4 k/uL (3.8-10.6)
--- NOTE | 2017-02-21 08:27 | P.PN ---
Progress Note - Text The patient is a 71-year-old gentleman who was admitted 5 days ago with abdominal pain and found to have a perforated duodenal ulcer on CAT scan. Patient initially treated with NG tube suction along with IV hydration and IV antibiotics. Analgesics. The patient is generally improved. He appears to be tolerating a regular diet. He is still having some pain but much improved. He denies any chest pain or shortness of breath this morning. He has not had a recent bowel movement. Vital signs reveal temperature of 97.5 with a pulse of 70 respirations 18. Blood pressure 124/71 and he is 97% saturated on room air. Lung and heart examination is clear. Abdomen is generally soft with minimal tenderness in the right upper to mid quadrant. No rebound or guarding or masses detected. Bowel sounds are normal. No unusual edema. A blood sugars 85 this morning. Labs from yesterday reveal a white count of 11 with a hemoglobin 10.5 and a platelet count of 284. Electrolytes were normal. Impressions and plans: Discussed with nursing and patient at bedside this morning. Patient anticipating likely discharge per surgery later today. I did emphasize to the patient to remain off of any anti-inflammatory medication such as indomethacin, ibuprofen or aspirin. He is to resume his Zyloprim, and Altoprev along with his multiple vitamins upon discharge. Follow-up with surgery. He is to call office if any concerns or problems though.
--- NOTE | 2017-02-21 10:24 | P.DS ---
Providers Date of admission: 02/16/17 11:01 Expected date of discharge: 02/21/17 Attending physician: Bereket Posey Consults: 02/16/17 11:00 Consult Physician Urgent Consulting Provider: Israel Johnson Reason/Comments: Medical management Do you want consulting provider notified?: Yes Primary care physician: Israel Johnson [facility] Course: 71-year-old male presented to the emergency room with a chief complaint of developing right upper quadrant abdominal pain radiating to the midsternal area. Patient stated the pain started about a week ago was intermittent would come and go. Patient states that the night before coming into the emergency room he woke up in the middle of the night the pain was symptomatic felt nauseated and vomited. Stated there was no change in bowel habits. Patient states was no fever chills. Given the above clinical presentation the patient did present to the emergency room to be evaluated. Patient states he lives in [place] 7 months out of the year. He states in October of this year he did have a lap cholecystectomy. Patient states he was told that he had gallstones and they did remove the gallstones with the procedure. Patient states he's also being seen by orthopedic service in [place] and plans on returning to [place] to have bilateral knee replacements done in the fall. Patient states he was told by the orthopedic surgeon in [place] that he needed to lose 50 pounds before he would agree to do the knee surgery. . Patient states he takes no over -the-counter analgesics does use Zyloprim 3 mg daily. Patient states his last colonoscopy was approximately 3 years ago done in [place] and was told there were no acute findings. To the patient's knowledge never had an EGD. Patient denies any prior episodes. In the emergency room the patient did have computed tomography scan of the abdomen pelvis with contrast reviewing the report it showed wall thickening and ill - definition of the descending portion of the duodenum. Adjacent fluid noted as well as 2 or 3 bubbles of free air within the gallbladder. Gallbladder surgically absent. Duodenal Ulcer area with small perforation difficult to exclude suspect a small microperforation nasal gastric tube was placed patient was started on bowel rest IV hydration monitored closely the nasogastric tube was able to be removed when patient's clinical signs improved. On the day of discharge patient stated there was a significant improvement in the abdominal pain almost resolved tolerating a diet was felt to be appropriate to be discharged with the plan the patient with follow-up in the outpatient setting it was reinforced to the patient to not take any anti-inflammatory medication such as aspirin, ibuprofen, or Indocin. The patient could resume Zyloprim and the multivitamins he had been on 8 blood sugars 90s to 120s afebrile Patient was felt to be hemodynamically stable and appropriate proceed with discharge to home Impression Present on admission intractable nausea vomiting right mid abdominal pain suspect due to a duodenal ulcer disease with small micro-perforation suspected per CAT scan abdomen and pelvis History of a recent lap cholecystectomy in October 2016 in [place] Hearing deficit Present on admission leukocytosis tachycardic hypotensive meets SIRS criteria early sepsis, suspect due to microperforation duodenal ulcer Hypertension essential Electrolyte hypokalemic resolved The above impression and plan of care have been discussed and directed by signing physician. Ramona Kan nurse practitioner acting as scribe for signing physician. Plan - Discharge Summary New Discharge Prescriptions: New HYDROcodone/APAP 7.5-325MG [Teague 7.5-325] 1 each PO Q6H PRN #15 tab PRN Reason: Pain Pantoprazole [Protonix] 40 mg PO AC-BID #60 tab Continue Multivitamins, Thera [Multivitamin (formulary)] 1 tab PO DAILY Cyanocobalamin (Vitamin B-12) [Vitamin B-12] 1,000 mcg PO DAILY Altoprev 40 mg PO DAILY Triamcinolone Acetonide [Nasacort] 1 - 2 spray EA NOSTRIL DAILY Allopurinol [Zyloprim] 300 mg PO DAILY Timolol [Betimol 0.5% Ophth Soln] 1 drop BOTH EYES DAILY Discharge Medication List Allopurinol [Zyloprim] 300 mg PO DAILY 02/16/17 [History] Altoprev 40 mg PO DAILY 02/16/17 [History] Cyanocobalamin (Vitamin B-12) [Vitamin B-12] 1,000 mcg PO DAILY 02/16/17 [ History] Multivitamins, Thera [Multivitamin (formulary)] 1 tab PO DAILY 02/16/17 [History ] Timolol [Betimol 0.5% Ophth Soln] 1 drop BOTH EYES DAILY 02/16/17 [History] Triamcinolone Acetonide [Nasacort] 1 - 2 spray EA NOSTRIL DAILY 09/08/17 [ History] HYDROcodone/APAP 7.5-325MG [Teague 7.5-325] 1 each PO Q6H PRN #15 tab 02/21/17 [ Rx] Pantoprazole [Protonix] 40 mg PO AC-BID #60 tab 02/21/17 [Rx] Follow up Appointment(s)/Referral(s): Bereket Posey MD [STAFF PHYSICIAN] - 02/27/17 3:00 pm Patient Instructions/Handouts: Peptic Ulcer (DC) Activity/Diet/Wound Care/Special Instructions: No aspirin, ibuprofen, Indocin Discharge Disposition: HOME SELF-CARE
== END 2017-02-21 11:54 | disposition home or self-care (01) | DRG 382 ==
LOC: EC 08:04 → 3SUR 11:01 → 5MS5E 15:24
PROVIDERS: ADMIT Surgery; ATTEND Surgery
DX: K26.5 Chronic or unspecified duodenal ulcer with perforation (principal); E11.9 Type 2 diabetes mellitus without complications; I10 Essential (primary) hypertension; E87.6 Hypokalemia; E66.9 Obesity, unspecified; Z68.30 Body mass index [BMI] 30.0-30.9, adult; E78.00 Pure hypercholesterolemia, unspecified; H40.9 Unspecified glaucoma; H91.90 Unspecified hearing loss, unspecified ear; K29.80 Duodenitis without bleeding; M10.9 Gout, unspecified; Z77.090 Contact with and (suspected) exposure to asbestos; Z83.3 Family history of diabetes mellitus; Z87.11 Personal history of peptic ulcer disease; Z87.891 Personal history of nicotine dependence; Z90.49 Acquired absence of other specified parts of digestive tract; Z88.1 Allergy status to other antibiotic agents; Z79.899 Other long term (current) drug therapy
CPT/HCPCS: 36415; 43753; 74177; 80048; 80053; 82150; 83605; 83690; 85025; 96361; 96365; 96366; 96375; 99285

== ENCOUNTER 2017-03-13 07:53 | Day surgery (SDC) | payer MEDICARE, BC ==
[2017-03-09 10:08] VITALS: BMI 30.3
[~2017-03-13 07:53] MED LIST: LACTATED RINGERS 1,000 ML IV ONE
[2017-03-13 08:33] VITALS: TEMP 97.9
[2017-03-13] MEDS ORDERED: LIDOCAINE 1% 20 ML VIAL (10MG/ML) FOR IV START INTRADERMA ONE (09:17)
[2017-03-13] MEDS ORDERED: LIDOCAINE 1% INJ 10MG/ML (20 ML MDV) ONE (09:18)
[2017-03-13] MEDS ORDERED: PROPOFOL 10 MG/ML 20 ML VIAL IV ONE (09:18)
--- NOTE | 2017-03-13 09:22 | P.GSHP ---
History of Present Illness H&P Date: 03/13/17 Chief Complaint: History of perforated duodenal ulcer This a 71-year-old male who has a history of peptic ulcer disease. Patient presents today for EGD. Past Medical History Past Medical History: Diabetes Mellitus, Hypertension, Osteoarthritis (OA) Additional Past Medical History / Comment(s): GLAUCOMA , QUETA HEARING AIDS, GOUT , ASBESTOSIS- STATES SOB WITH ACTIVITY., LOST OVER 50 # FOR UPCOMING KNEE SURGERIES AND NO LONGER TAKING BLOOD PRESSURE AND DIABETIC MEDS., PT HOSPITALIZED AT [facility] 02/16/17-02/21/17 WITH STOMACH ULCERS. History of Any Multi-Drug Resistant Organisms: None Reported Past Surgical History: Cholecystectomy, Tonsillectomy Additional Past Surgical History / Comment(s): ear Past Anesthesia/Blood Transfusion Reactions: No Reported Reaction, Motion Sickness Past Psychological History: No Psychological Hx Reported Additional Psychological History / Comment(s): . Smoking Status: Former smoker Past Alcohol Use History: Occasional Additional Past Alcohol Use History / Comment(s): STARTED SMOPKING AGE 16, SMOKED 1-1.5 PPD. QUIT 1976, USED TO DRINK 6 PACK OF BEER DAILY -QUIT IN OCTOBER 2016, DRINKS WINE OCCASIONALLY NOW. Past Drug Use History: None Reported - Past Family History Father Family Medical History: CVA/TIA Mother Family Medical History: Cancer Medications and Allergies Home Medications Medication Instructions Recorded Confirmed Type Multivitamins, Thera [Multivitamin 1 tab PO DAILY 02/16/17 03/13/17 History (formulary)] Timolol [Betimol 0.5% Ophth Soln] 1 drop BOTH EYES DAILY 02/16/17 03/13/17 History Triamcinolone Acetonide [Nasacort] 1 - 2 spray EA NOSTRIL DAILY 02/16/17 History Pantoprazole [Protonix] 40 mg PO AC-BID #60 tab 02/21/17 03/13/17 Rx Allopurinol [Zyloprim] 100 mg PO DAILY 03/09/17 03/13/17 History Cetirizine HCl [Zyrtec] 10 mg PO DAILY 03/09/17 03/13/17 History Lovastatin [Mevacor] 40 mg PO HS 03/09/17 03/13/17 History Allergies Allergy/AdvReac Type Severity Reaction Status Date / Time ciprofloxacin [From Cipro] Allergy Rash/Hives Verified 03/13/17 08:24 Surgical - Exam Vital Signs Temp Pulse Resp BP Pulse Ox 97.9 F 89 16 125/85 98 03/13/17 08:31 03/13/17 08:31 03/13/17 08:31 03/13/17 08:31 03/13/17 08:31 - General well developed, no distress - Eyes PERRL - ENT normal pinna - Neck no masses - Respiratory normal expansion - Cardiovascular Rhythm: regular - Abdomen Abdomen: soft, non tender Assessment and Plan Plan: Peptic ulcer disease. We'll perform EGD.
--- NOTE | 2017-03-13 09:40 | P.OP ---
Date of Procedure: 03/13/17 Preoperative Diagnosis: Peptic ulcer disease History of perforated duodenal ulcer Postoperative Diagnosis: No evidence of duodenitis Mild antral gastritis Hiatal hernia Mild esophagitis Procedure(s) Performed: EGD Anesthesia: MAC Surgeon: Bereket Posey Pathology: other (Antrum, esophagus) Condition: stable Disposition: PACU Description of Procedure: The patient's placed on the endoscopy table in the lateral position. He received IV sedation. The gastroscope placed oropharynx passed in the esophagus and stomach. The scope was then placed through the pylorus. The first and second portion of the duodenum appeared normal. Scope was then brought back the antrum this appeared mildly inflamed. A biopsies performed. There is no evidence of ulcers. The scope was then retroflexed the remainder stomach appeared normal. There was a small hiatal hernia. The GE junction was at 38 cm. The distal esophagus appeared mildly inflamed this area was biopsied. The proximal esophagus. Normal. Scope was withdrawn for patient.
[2017-03-13 10:00] VITALS: BP 137/73; PULSE 64; RESP 18
== END 2017-03-13 10:22 | disposition home or self-care (01) ==
LOC: ORWHC2ENDO 07:53
PROVIDERS: ATTEND Surgery
DX: K29.50 Unspecified chronic gastritis without bleeding (principal); K21.0 Gastro-esophageal reflux disease with esophagitis; K44.9 Diaphragmatic hernia without obstruction or gangrene; E78.5 Hyperlipidemia, unspecified; Z87.891 Personal history of nicotine dependence; M10.9 Gout, unspecified; H40.9 Unspecified glaucoma; E11.9 Type 2 diabetes mellitus without complications; J61 Pneumoconiosis due to asbestos and other mineral fibers; R06.02 Shortness of breath; M19.90 Unspecified osteoarthritis, unspecified site; Z79.899 Other long term (current) drug therapy; Z88.1 Allergy status to other antibiotic agents
CPT/HCPCS: 88305; 88342; 43239; J2001; J2704

== ENCOUNTER 2019-11-26 00:45 | Inpatient (IN) | payer MEDICARE ==
--- NOTE | 2019-11-26 01:07 | ED ---
Abdominal Pain HPI - General Chief Complaint: Abdominal Pain Stated Complaint: Abdominal Pain Time Seen by Provider: 11/26/19 00:48 Source: patient Mode of arrival: ambulatory Limitations: no limitations - History of Present Illness Initial Comments: 73-year-old male presenting today for chief complaint of right-sided abdominal pain he states that down pain began around 9:30 PM it is sharp pain consistent in characteristic he denies any radiation denies any chest pain shortness of breath he states this to the mid to lower right side of the abdomen he denies any back pain patient denies any nausea vomiting diarrhea and states he had a normal bowel movement this evening. Patient denies any specific alleviating or aggravating events. Upon arrival patient appears nontoxic in no acute distress. - Related Data Home Medications Medication Instructions Recorded Confirmed Triamcinolone Acetonide [Nasacort] 1 - 2 spray EA NOSTRIL DAILY 02/16/17 11/26/19 Allopurinol [Zyloprim] 100 mg PO DAILY 03/09/17 11/26/19 Cetirizine HCl [Zyrtec] 10 mg PO DAILY 03/09/17 11/26/19 Lovastatin [Mevacor] 40 mg PO HS 03/09/17 11/26/19 Levobunolol HCl [Betagan 0.5%] 1 drop BOTH EYES DAILY 11/26/19 11/26/19 Lisinopril [Zestril] 10 mg PO DAILY 11/26/19 11/26/19 Allergies Allergy/AdvReac Type Severity Reaction Status Date / Time ciprofloxacin [From Cipro] Allergy Rash/Hives Verified 11/26/19 09:41 Review of Systems ROS Statement: Those systems with pertinent positive or pertinent negative responses have been documented in the HPI. ROS Other: All systems not noted in ROS Statement are negative. Past Medical History Past Medical History: Diabetes Mellitus, Hypertension, Osteoarthritis (OA) Additional Past Medical History / Comment(s): GLAUCOMA , QUETA HEARING AIDS, GOUT, ASBESTOSIS- STATES SOB WITH ACTIVITY., LOST OVER 50 # FOR UPCOMING KNEE S URGERIES AND NO LONGER TAKING BLOOD PRESSURE AND DIABETIC MEDS., PT HOSPITALIZED AT [facility] 02/16/17-02/21/17 WITH STOMACH ULCERS. History of Any Multi-Drug Resistant Organisms: None Reported Past Surgical History: Cholecystectomy, Tonsillectomy Additional Past Surgical History / Comment(s): ear Past Anesthesia/Blood Transfusion Reactions: No Reported Reaction, Motion Sickness Past Psychological History: No Psychological Hx Reported Smoking Status: Former smoker Past Alcohol Use History: Occasional Past Drug Use History: None Reported - Past Family History Father Family Medical History: CVA/TIA Mother Family Medical History: Cancer General Exam Limitations: no limitations Course Vital Signs 11/26/19 11/26/19 11/26/19 00:48 02:08 03:46 Temperature 97.6 F Pulse Rate 74 82 81 Pulse Rate [ Right] Respiratory 18 16 15 Rate Blood Pressure 125/82 117/61 108/57 Blood Pressure [Right Arm] O2 Sat by Pulse 98 99 96 Oximetry 11/26/19 11/26/19 08:00 10:52 Temperature 98.4 F Pulse Rate Pulse Rate [ 101 H Right] Respiratory 15 16 Rate Blood Pressure Blood Pressure 139/87 [Right Arm] O2 Sat by Pulse 97 Oximetry Medical Decision Making - Medical Decision Making 73-year-old male history of peptic ulcer disease with perforation presents emergency department today for chief complaint of right-sided abdominal pain. CT obtained to rule out infectious process patient significant tender the right side of the abdomen. This reveals pneumoperitoneum felt to likely be related to again peptic ulcer perforation. IV abx initiated. Pt labs stable, does not appear toxic. scallop cutter surgeon paged. Dr. Morrissey is agreeable to care plan and admission. - Lab Data Result diagrams: 11/26/19 01:14 11/26/19 01:14 Lab Results 11/26/19 11/26/19 11/26/19 Range/Units 01:14 01:14 01:14 WBC 10.5 (3.8-10.6) k/uL RBC 5.32 (4.30-5.90) m/uL Hgb 16.7 (13.0-17.5) gm/dL Hct 48.4 (39.0-53.0) % MCV 91.0 (80.0-100.0) fL MCH 31.3 (25.0-35.0) pg MCHC 34.4 (31.0-37.0) g/dL RDW 13.0 (11.5-15.5) % Plt Count 274 (150-450) k/uL Neutrophils % 80 % Lymphocytes % 10 % Monocytes % 5 % Eosinophils % 3 % Basophils % 1 % Neutrophils # 8.4 H (1.3-7.7) k/uL Lymphocytes # 1.1 (1.0-4.8) k/uL Monocytes # 0.5 (0-1.0) k/uL Eosinophils # 0.4 (0-0.7) k/uL Basophils # 0.1 (0-0.2) k/uL Sodium 135 L (137-145) mmol/L Potassium 4.5 (3.5-5.1) mmol/L Chloride 102 (98-107) mmol/L Carbon Dioxide 24 (22-30) mmol/L Anion Gap 9 mmol/L BUN 23 H (9-20) mg/dL Creatinine 1.19 (0.66-1.25) mg/dL Est GFR (CKD-EPI)AfAm 70 (>60 ml/min/1.73 sqM) Est GFR (CKD-EPI)NonAf 60 (>60 ml/min/1.73 sqM) Glucose 140 H (74-99) mg/dL Plasma Lactic Acid Riccardo (0.7-2.0) mmol/L Calcium 9.8 (8.4-10.2) mg/dL Total Bilirubin 1.2 (0.2-1.3) mg/dL AST 25 (17-59) U/L ALT 18 (4-49) U/L Alkaline Phosphatase 66 (38-126) U/L Total Protein 7.4 (6.3-8.2) g/dL Albumin 4.4 (3.5-5.0) g/dL Amylase 73 (30-110) U/L Lipase 126 (23-300) U/L Urine Color Yellow Urine Appearance Clear (Clear) Urine pH 5.5 (5.0-8.0) Ur Specific [place] 1.021 (1.001-1.035) Urine Protein Trace H (Negative) Urine Glucose (UA) Negative (Negative) Urine Ketones 1+ H (Negative) Urine Blood Negative (Negative) Urine Nitrite Negative (Negative) Urine Bilirubin Negative (Negative) Urine Urobilinogen <2.0 (<2.0) mg/dL Ur Leukocyte Esterase Negative (Negative) 11/26/19 Range/Units 01:14 WBC (3.8-10.6) k/uL RBC (4.30-5.90) m/uL Hgb (13.0-17.5) gm/dL Hct (39.0-53.0) % MCV (80.0-100.0) fL MCH (25.0-35.0) pg MCHC (31.0-37.0) g/dL RDW (11.5-15.5) % Plt Count (150-450) k/uL Neutrophils % % Lymphocytes % % Monocytes % % Eosinophils % % Basophils % % Neutrophils # (1.3-7.7) k/uL Lymphocytes # (1.0-4.8) k/uL Monocytes # (0-1.0) k/uL Eosinophils # (0-0.7) k/uL Basophils # (0-0.2) k/uL Sodium (137-145) mmol/L Potassium (3.5-5.1) mmol/L Chloride (98-107) mmol/L Carbon Dioxide (22-30) mmol/L Anion Gap mmol/L BUN (9-20) mg/dL Creatinine (0.66-1.25) mg/dL Est GFR (CKD-EPI)AfAm (>60 ml/min/1.73 sqM) Est GFR (CKD-EPI)NonAf (>60 ml/min/1.73 sqM) Glucose (74-99) mg/dL Plasma Lactic Acid Riccardo 1.2 (0.7-2.0) mmol/L Calcium (8.4-10.2) mg/dL Total Bilirubin (0.2-1.3) mg/dL AST (17-59) U/L ALT (4-49) U/L Alkaline Phosphatase (38-126) U/L Total Protein (6.3-8.2) g/dL Albumin (3.5-5.0) g/dL Amylase (30-110) U/L Lipase (23-300) U/L Urine Color Urine Appearance (Clear) Urine pH (5.0-8.0) Ur Specific [place] (1.001-1.035) Urine Protein (Negative) Urine Glucose (UA) (Negative) Urine Ketones (Negative) Urine Blood (Negative) Urine Nitrite (Negative) Urine Bilirubin (Negative) Urine Urobilinogen (<2.0) mg/dL Ur Leukocyte Esterase (Negative) Disposition Clinical Impression: Hx of peptic ulcer, Pneumoperitoneum, Ascites Disposition: ADMITTED IP TO THIS HOSP Condition: Serious Is patient prescribed a controlled substance at d/c from ED?: No Time of Disposition: 02:46 Decision to Admit Reason: Admit from EC Decision Date: 11/26/19 Decision Time: 02:46
[2019-11-26] MEDS: MORPHINE SULFATE 4 MG/ML SYRINGE IVP PRN ×4 (01:19→20:04)
[2019-11-26 01:39] LABS: Basophils # (A) 0.1 k/uL (0-0.2); Basophils % (A) 1 %; Eosinophils # (A) 0.4 k/uL (0-0.7); Eosinophils % (A) 3 %; HCT 48.4 % (39.0-53.0); HGB 16.7 gm/dL (13.0-17.5); Lymphocytes # (A) 1.1 k/uL (1.0-4.8); Lymphocytes % (A) 10 %; MCH 31.3 pg (25.0-35.0); MCHC 34.4 g/dL (31.0-37.0); Mean Platelet Volume 7.2; Monocytes # (A) 0.5 k/uL (0-1.0); Monocytes % (A) 5 %; Neutrophils # (A) 8.4 k/uL (1.3-7.7); Neutrophils % (A) 80 %; Platelet Count 274 k/uL (150-450); RBC 5.32 m/uL (4.30-5.90); WBC 10.5 k/uL (3.8-10.6)
[2019-11-26 01:40] LABS: Albumin 4.4 g/dL (3.5-5.0); Calcium 9.8 mg/dL (8.4-10.2); Potassium 4.5 mmol/L (3.5-5.1); Total Bilirubin 1.2 mg/dL (0.2-1.3); Total Protein 7.4 g/dL (6.3-8.2)
[2019-11-26 01:45] LABS: Appearance,Urine Clear (Clear); Bilirubin,Urine Negative (Negative); Blood,Urine Negative (Negative); Color,Urine Yellow; Glucose,Urine (UA) Negative (Negative); Ketones,Urine 1+ (Negative); Leukocyte Esterase,Urine Negative (Negative); Nitrite,Urine Negative (Negative); PH, Urine 5.5 (5.0-8.0); Protein,Urine Trace (Negative); Specific Gravity,Urine 1.021 (1.001-1.035); Urobilinogen,Urine <2.0 mg/dL (<2.0)
[2019-11-26] MEDS ORDERED: PIPERACILLIN-TAZOBACTAM 3.375 GM in SODIUM CHLORIDE 0.9% 100 ML IVPB STA (02:44)
[2019-11-26] MEDS ORDERED: NALOXONE 0.4 MG/ML 1 ML VIAL IV PRN (02:47)
[2019-11-26] MEDS ORDERED: ONDANSETRON 4 MG/2 ML VIAL IVP PRN (02:47)
--- NOTE | 2019-11-26 02:51 | CT ---
EXAMINATION TYPE: CT abdomen pelvis w con DATE OF EXAM: 11/26/2019 COMPARISON: 02/16/2017 HISTORY: RLQ ABD PAIN CT DLP: 1730.2 mGycm Automated exposure control for dose reduction was used. CONTRAST: Performed with IV Contrast, patient injected with 100 mL of Isovue 300. There is some atelectasis at the lung bases. Heart size is normal. Liver spleen stomach appear normal . Bile ducts are not dilated. There are clips from cholecystectomy. There is no evidence of pancreati c mass. There is no adrenal mass. Kidneys have normal size and contour. There is no hydronephrosis. There is normal excretion on the delayed images. Ureters are not dilated. There is no retroperitoneal adenopat hy. There is small umbilical hernia that contains fat. Bladder distends smoothly. There is prostatic calcification. There is no inguinal hernia. There is no evidence of a pelvic mass. The appendix is in ferior and appears normal. There is scattered areas of free fluid in the abdomen and more fluid around the marilyn hepatis. There is free fluid in the cul-de-sac and small bowel in the paracolic gutters. There is a mild pneumoperit oneum. Air is seen in the ascites fluid in the right upper quadrant. That is anterior and to the righ t side of the proximal duodenum. Lumbar vertebra have fairly normal alignment. There is no compression fracture. There is multilevel m ild spondylotic changes. IMPRESSION: There is some abdominal ascites that is mostly new compared to old exam. There is new pneumoperitoneu m in the right upper quadrant near the duodenum that could relate to perforation. Normal appendix. Mild subsegmental atelectasis at the lung bases. This exam was discussed with Dr. De La Garza at 3:00 AM.
[2019-11-26] MEDS ORDERED: PANTOPRAZOLE 40 MG/10 ML VIAL IVP STA (02:56)
[2019-11-26] MEDS: SODIUM CHLORIDE 0.9% 1,000 ML IV SCH ×3 (03:28→20:04)
[2019-11-26] MEDS ORDERED: HYDROmorphone 1 MG/ML 1 ML SYRINGE IVP STA (03:39)
[2019-11-26] MEDS: PANTOPRAZOLE 40 MG/10 ML VIAL IVP SCH (07:28)
[2019-11-26] MEDS: AMPICILLIN-SULBACTAM 3 GM in SODIUM CHLORIDE 0.9% 100 ML IVPB SCH ×2 (08:33→16:07)
--- NOTE | 2019-11-26 11:13 | P.GSHP ---
History of Present Illness H&P Date: 11/26/19 Chief Complaint: Abdominal pain This a 73-year-old male who presents emergency room complaints of abdominal pain. Patient had significant pain last night. His CAT scan of the abdomen shows possible microperforation of the duodenum related to peptic ulcer disease. Patient is resting comfortably in his bed. He He states his pain is minimal this time. Patient has had a previous episode similar to this. He has known peptic ulcer disease. Past Medical History Past Medical History: Diabetes Mellitus, Hypertension, Osteoarthritis (OA) Additional Past Medical History / Comment(s): GLAUCOMA , QUETA HEARING AIDS, GOUT, ASBESTOSIS- STATES SOB WITH ACTIVITY., LOST OVER 50 # FOR UPCOMING KNEE SURGERIES AND NO LONGER TAKING BLOOD PRESSURE AND DIABETIC MEDS., PT HOSPITALIZED AT [facility] 02/16/17-02/21/17 WITH STOMACH ULCERS. History of Any Multi-Drug Resistant Organisms: None Reported Past Surgical History: Cholecystectomy, Tonsillectomy Additional Past Surgical History / Comment(s): ear , shoulder surgery{ reverse shoulder put in } Past Anesthesia/Blood Transfusion Reactions: No Reported Reaction, Motion Sickne ss Past Psychological History: No Psychological Hx Reported Additional Psychological History / Comment(s): . Smoking Status: Former smoker Past Alcohol Use History: Occasional Additional Past Alcohol Use History / Comment(s): STARTED SMOPKING AGE 16, SMOKED 1-1.5 PPD. QUIT 1976, USED TO DRINK 6 PACK OF BEER DAILY -QUIT IN OCTOBER 2016, DRINKS WINE OCCASIONALLY NOW. Past Drug Use History: None Reported - Past Family History Father Family Medical History: CVA/TIA Mother Family Medical History: Cancer Medications and Allergies Home Medications Medication Instructions Recorded Confirmed Type Triamcinolone Acetonide [Nasacort] 1 - 2 spray EA NOSTRIL DAILY 02/16/17 11/26/19 History Allopurinol [Zyloprim] 100 mg PO DAILY 03/09/17 11/26/19 History Cetirizine HCl [Zyrtec] 10 mg PO DAILY 03/09/17 11/26/19 History Lovastatin [Mevacor] 40 mg PO HS 03/09/17 11/26/19 History Levobunolol HCl [Betagan 0.5%] 1 drop BOTH EYES DAILY 11/26/19 11/26/19 History Lisinopril [Zestril] 10 mg PO DAILY 11/26/19 11/26/19 History Allergies Allergy/AdvReac Type Severity Reaction Status Date / Time ciprofloxacin [From Cipro] Allergy Rash/Hives Verified 11/26/19 09:41 Surgical - Exam Vital Signs Temp Pulse Resp BP Pulse Ox 97.6 F 74 18 125/82 98 11/26/19 00:48 11/26/19 00:48 11/26/19 00:48 11/26/19 00:48 11/26/19 00:48 - General well developed, well nourished, no distress - Eyes PERRL - ENT normal pinna - Neck no masses - Respiratory normal expansion - Cardiovascular Rhythm: regular - Abdomen Minimal tenderness. There is no rebound or guarding. Abdomen: soft Results - Labs 11/26/19 01:14 11/26/19 01:14 Abnormal Lab Results - Last 24 Hours (Table) 11/26/19 11/26/19 11/26/19 Range/Units 01:14 01:14 01:14 Neutrophils # 8.4 H (1.3-7.7) k/uL Sodium 135 L (137-145) mmol/L BUN 23 H (9-20) mg/dL Glucose 140 H (74-99) mg/dL Urine Protein Trace H (Negative) Urine Ketones 1+ H (Negative) Diabetes panel 11/26/19 Range/Units 01:14 Sodium 135 L (137-145) mmol/L Potassium 4.5 (3.5-5.1) mmol/L Chloride 102 (98-107) mmol/L Carbon Dioxide 24 (22-30) mmol/L BUN 23 H (9-20) mg/dL Creatinine 1.19 (0.66-1.25) mg/dL Glucose 140 H (74-99) mg/dL Calcium 9.8 (8.4-10.2) mg/dL AST 25 (17-59) U/L ALT 18 (4-49) U/L Alkaline Phosphatase 66 (38-126) U/L Total Protein 7.4 (6.3-8.2) g/dL Albumin 4.4 (3.5-5.0) g/dL Calcium panel 11/26/19 Range/Units 01:14 Calcium 9.8 (8.4-10.2) mg/dL Albumin 4.4 (3.5-5.0) g/dL Pituitary panel 11/26/19 Range/Units 01:14 Sodium 135 L (137-145) mmol/L Potassium 4.5 (3.5-5.1) mmol/L Chloride 102 (98-107) mmol/L Carbon Dioxide 24 (22-30) mmol/L BUN 23 H (9-20) mg/dL Creatinine 1.19 (0.66-1.25) mg/dL Glucose 140 H (74-99) mg/dL Calcium 9.8 (8.4-10.2) mg/dL Adrenal panel 11/26/19 Range/Units 01:14 Sodium 135 L (137-145) mmol/L Potassium 4.5 (3.5-5.1) mmol/L Chloride 102 (98-107) mmol/L Carbon Dioxide 24 (22-30) mmol/L BUN 23 H (9-20) mg/dL Creatinine 1.19 (0.66-1.25) mg/dL Glucose 140 H (74-99) mg/dL Calcium 9.8 (8.4-10.2) mg/dL Total Bilirubin 1.2 (0.2-1.3) mg/dL AST 25 (17-59) U/L ALT 18 (4-49) U/L Alkaline Phosphatase 66 (38-126) U/L Total Protein 7.4 (6.3-8.2) g/dL Albumin 4.4 (3.5-5.0) g/dL - Imaging CT scan - abdomen: report reviewed (Small bowel pneumoperitoneum in the right upper quadrant.) Assessment and Plan Assessment: Probable peptic ulcer disease with microperforation. Patient is roughly a diab etic. We will perform conservative therapy with NG tube and IV antibiotic. Patient will be observed closely.
[2019-11-26 18:23] LABS: Glucose,Whole Blood 156 mg/dL (75-99)
[2019-11-27] MEDS: AMPICILLIN-SULBACTAM 3 GM in SODIUM CHLORIDE 0.9% 100 ML IVPB SCH ×3 (01:03→14:28)
[2019-11-27 01:33] LABS: Glucose,Whole Blood 115 mg/dL (75-99)
[2019-11-27] MEDS: MORPHINE SULFATE 4 MG/ML SYRINGE IVP PRN ×3 (05:33→20:26)
[2019-11-27] MEDS: SODIUM CHLORIDE 0.9% 1,000 ML IV SCH ×3 (05:33→20:26)
[2019-11-27] MEDS: PANTOPRAZOLE 40 MG/10 ML VIAL IVP SCH (06:56)
[2019-11-27 07:13] LABS: Basophils % (A) 0 %; Eosinophils % (A) 0 %; HCT 46.9 % (39.0-53.0); HGB 14.6 gm/dL (13.0-17.5); Lymphocytes # (A) 0.8 k/uL (1.0-4.8); Lymphocytes % (A) 7 %; MCH 28.9 pg (25.0-35.0); MCHC 31.2 g/dL (31.0-37.0); MCV 92.7 fL (80.0-100.0); Mean Platelet Volume 7.2; Monocytes # (A) 0.6 k/uL (0-1.0); Monocytes % (A) 5 %; Neutrophils # (A) 9.7 k/uL (1.3-7.7); Neutrophils % (A) 87 %; Platelet Count 207 k/uL (150-450); RBC 5.06 m/uL (4.30-5.90); RDW 13.5 % (11.5-15.5); WBC 11.2 k/uL (3.8-10.6)
--- NOTE | 2019-11-27 08:28 | P.PN ---
Progress Note - Text Progress Note Date: 11/27/19 Patient states he feels slightly better. His abdominal pain is diminished. On exam her vital signs are stable. NG tube has some mild bilious fluid. Abdomen esophagus is no rebound or guarding. Presumed peptic ulcer disease of microperforation. Patient continue receive NG tube aspiration and nothing by mouth. We will attempt clear liquid diet tomorrow.
[2019-11-27 08:58] LABS: Glucose,Whole Blood 118 mg/dL (75-99)
[2019-11-27 11:47] LABS: Glucose,Whole Blood 119 mg/dL (75-99)
[2019-11-27 17:16] LABS: Glucose,Whole Blood 115 mg/dL (75-99)
[2019-11-27 23:58] LABS: Glucose,Whole Blood 115 mg/dL (75-99)
[2019-11-28] MEDS: AMPICILLIN-SULBACTAM 3 GM in SODIUM CHLORIDE 0.9% 100 ML IVPB SCH ×4 (00:37→23:42)
[2019-11-28 06:02] LABS: Glucose,Whole Blood 120 mg/dL (75-99)
[2019-11-28] MEDS: SODIUM CHLORIDE 0.9% 1,000 ML IV SCH ×3 (06:13→20:10)
[2019-11-28] MEDS: PANTOPRAZOLE 40 MG/10 ML VIAL IVP SCH (06:41)
[2019-11-28 06:50] LABS: Glucose,Whole Blood 114 mg/dL (75-99)
[2019-11-28 07:11] LABS: Basophils # (A) 0.1 k/uL (0-0.2); Basophils % (A) 0 %; Eosinophils # (A) 0.1 k/uL (0-0.7); Eosinophils % (A) 1 %; HCT 46.5 % (39.0-53.0); HGB 14.3 gm/dL (13.0-17.5); Lymphocytes # (A) 0.8 k/uL (1.0-4.8); Lymphocytes % (A) 8 %; MCH 28.7 pg (25.0-35.0); MCHC 30.8 g/dL (31.0-37.0); MCV 93.1 fL (80.0-100.0); Mean Platelet Volume 7.4; Monocytes # (A) 0.6 k/uL (0-1.0); Monocytes % (A) 6 %; Neutrophils # (A) 9.3 k/uL (1.3-7.7); Neutrophils % (A) 84 %; Platelet Count 222 k/uL (150-450); RBC 4.99 m/uL (4.30-5.90); RDW 13.4 % (11.5-15.5)
[2019-11-28 11:35] LABS: Glucose,Whole Blood 109 mg/dL (75-99)
--- NOTE | 2019-11-28 12:44 | P.PN ---
<Tiffanie Love - Last Filed: 11/28/19 12:37> Subjective Progress Note Date: 11/28/19 CHIEF COMPLAINT: Abdominal pain HISTORY OF PRESENT ILLNESS: Patient examined at the bedside. He reports minimal abdominal pain. Currently rating 1/10. NG tube to low intermittent suction w ith bilious drainage. Nursing reports 150 mL overnight. WBC 11.0. Patient was febrile yesterday evening with a temperature of 100.2 and HR 105. Afebrile this morning. Heart rate improved. BP stable. PHYSICAL EXAM: VITAL SIGNS: Reviewed. GENERAL: Well-developed in no acute distress. HEENT: No sclera icterus. Extraocular movements grossly intact. Moist buccal mucosa. Head is atraumatic, normocephalic. ABDOMEN: Soft. Nondistended. Nontender. NG to LIS with bilious drainage. NEUROLOGIC: Alert and oriented. Cranial nerves II through XII grossly intact. ASSESSMENT: 1. Microperforation secondary to suspected peptic ulcer disease PLAN: -Continue NPO -Continue NG to LIS -Continue anitibiotics -Dr Rae will re-evaluate patient this afternoon. Possible removal of NG and clear liquids versus UGI study Nurse practitioner note has been reviewed by physician. Signing provider agrees with the documented findings, assessment, and plan of care. Objective - Vital Signs Vital signs: Vital Signs Temp 98.2 F 11/28/19 07:00 Pulse 91 11/28/19 07:00 Resp 17 11/28/19 07:40 BP 120/76 11/28/19 07:00 Pulse Ox 96 11/28/19 07:00 Intake & Output 11/27/19 11/28/19 11/28/19 18:59 06:59 18:59 Intake Total 1440 Balance 1440 Intake: Intake, IV Titration 1440 Amount Sodium Chloride 0.9% 1, 1440 000 ml @ 120 mls/hr IV . Q8H20M [facility] Rx#:[id number] Other: Voiding Method Toilet Toilet Toilet # Voids 1 2 - Labs CBC & Chem 7: 11/28/19 06:08 11/26/19 01:14 Labs: Abnormal Lab Results - Last 24 Hours (Table) 11/27/19 11/27/19 11/28/19 Range/Units 17:14 23:54 05:59 WBC (3.8-10.6) k/uL MCHC (31.0-37.0) g/dL Neutrophils # (1.3-7.7) k/uL Lymphocytes # (1.0-4.8) k/uL POC Glucose (mg/dL) 115 H 115 H 120 H (75-99) mg/dL 11/28/19 11/28/19 11/28/19 Range/Units 06:08 06:49 11:34 WBC 11.0 H (3.8-10.6) k/uL MCHC 30.8 L (31.0-37.0) g/dL Neutrophils # 9.3 H (1.3-7.7) k/uL Lymphocytes # 0.8 L (1.0-4.8) k/uL POC Glucose (mg/dL) 114 H 109 H (75-99) mg/dL Microbiology - Last 24 Hours (Table) 11/26/19 01:14 Blood Culture - Preliminary Blood No Growth after 48 hours <Alan Rae - Last Filed: 11/28/19 15:38> Subjective As above. Patient denies pain. Nasogastric output minimal. White blood cell count 11. Yesterday had a temp of 100.2. Would like the nasogastric tube removed. We'll start clear liquids at this time. Recheck labs tomorrow. Objective - Vital Signs Vital signs: Vital Signs Temp 98.2 F 11/28/19 07:00 Pulse 91 11/28/19 07:00 Resp 17 11/28/19 07:40 BP 120/76 11/28/19 07:00 Pulse Ox 96 11/28/19 07:00 Intake & Output 11/27/19 11/28/19 11/28/19 18:59 06:59 18:59 Intake Total 1440 Balance 1440 Intake: Intake, IV Titration 1440 Amount Sodium Chloride 0.9% 1, 1440 000 ml @ 120 mls/hr IV . Q8H20M [facility] Rx#:[id number] Other: Voiding Method Toilet Toilet Toilet # Voids 1 2 - Labs CBC & Chem 7: 11/28/19 06:08 11/26/19 01:14 Labs: Abnormal Lab Results - Last 24 Hours (Table) 11/27/19 11/27/19 11/28/19 Range/Units 17:14 23:54 05:59 WBC (3.8-10.6) k/uL MCHC (31.0-37.0) g/dL Neutrophils # (1.3-7.7) k/uL Lymphocytes # (1.0-4.8) k/uL POC Glucose (mg/dL) 115 H 115 H 120 H (75-99) mg/dL 11/28/19 11/28/19 11/28/19 Range/Units 06:08 06:49 11:34 WBC 11.0 H (3.8-10.6) k/uL MCHC 30.8 L (31.0-37.0) g/dL Neutrophils # 9.3 H (1.3-7.7) k/uL Lymphocytes # 0.8 L (1.0-4.8) k/uL POC Glucose (mg/dL) 114 H 109 H (75-99) mg/dL Microbiology - Last 24 Hours (Table) 11/26/19 01:14 Blood Culture - Preliminary Blood No Growth after 48 hours
[2019-11-28 17:13] LABS: Glucose,Whole Blood 128 mg/dL (75-99)
[2019-11-28 21:20] LABS: Glucose,Whole Blood 108 mg/dL (75-99)
[2019-11-29 07:13] LABS: Glucose,Whole Blood 113 mg/dL (75-99)
[2019-11-29] MEDS: PANTOPRAZOLE 40 MG/10 ML VIAL IVP SCH (07:42)
[2019-11-29] MEDS: MORPHINE SULFATE 4 MG/ML SYRINGE IVP PRN ×2 (07:43→15:31)
[2019-11-29] MEDS: AMPICILLIN-SULBACTAM 3 GM in SODIUM CHLORIDE 0.9% 100 ML IVPB SCH ×3 (07:43→23:12)
[2019-11-29] MEDS: SODIUM CHLORIDE 0.9% 1,000 ML IV SCH ×3 (07:43→23:13)
[2019-11-29 08:53] LABS: Basophils # (A) 0.1 k/uL (0-0.2); Basophils % (A) 1 %; Eosinophils # (A) 0.3 k/uL (0-0.7); Eosinophils % (A) 3 %; HCT 43.8 % (39.0-53.0); HGB 13.8 gm/dL (13.0-17.5); Lymphocytes # (A) 0.8 k/uL (1.0-4.8); Lymphocytes % (A) 9 %; MCH 29.4 pg (25.0-35.0); MCHC 31.6 g/dL (31.0-37.0); Mean Platelet Volume 7.4; Monocytes # (A) 0.6 k/uL (0-1.0); Monocytes % (A) 7 %; Neutrophils % (A) 80 %; Platelet Count 207 k/uL (150-450); RBC 4.71 m/uL (4.30-5.90); RDW 13.2 % (11.5-15.5); WBC 8.8 k/uL (3.8-10.6)
[2019-11-29 11:33] LABS: Glucose,Whole Blood 113 mg/dL (75-99)
--- NOTE | 2019-11-29 14:08 | P.PN ---
Subjective Progress Note Date: 11/29/19 Principal diagnosis: Duodenal ulcer Patient doing well today. No significant pain. White blood cell count 8.8. Tolerating 50% of clear liquid tray. Objective - Vital Signs Vital signs: Vital Signs Temp 98.8 F 11/29/19 07:00 Pulse 82 11/29/19 07:00 Resp 20 11/29/19 07:00 BP 147/72 11/29/19 07:00 Pulse Ox 97 11/29/19 07:00 Intake & Output 11/28/19 11/29/19 11/29/19 18:59 06:59 18:59 Intake Total 300 580 Balance 300 580 Intake: Intake, IV Titration 580 Amount Ampicillin-Sulbactam 3 gm 100 In Sodium Chloride 0.9% 100 ml @ 200 mls/hr IVPB Q8HR [facility] Rx#:[id number] Sodium Chloride 0.9% 1, 480 000 ml @ 120 mls/hr IV . Q8H20M [facility] Rx#:[id number] Oral 300 Other: Voiding Method Toilet # Voids 1 1 - Exam Abdomen: Soft, nondistended, nontender - Labs CBC & Chem 7: 11/29/19 07:47 11/26/19 01:14 Labs: Abnormal Lab Results - Last 24 Hours (Table) 11/28/19 11/28/19 11/29/19 Range/Units 17:12 21:17 07:09 Lymphocytes # (1.0-4.8) k/uL POC Glucose (mg/dL) 128 H 108 H 113 H (75-99) mg/dL 11/29/19 11/29/19 Range/Units 07:47 11:32 Lymphocytes # 0.8 L (1.0-4.8) k/uL POC Glucose (mg/dL) 113 H (75-99) mg/dL Microbiology - Last 24 Hours (Table) 11/26/19 01:14 Blood Culture - Preliminary Blood No Growth after 72 hours Assessment and Plan (1) Hx of peptic ulcer Narrative/Plan: Patient progressing nicely. Continue antibiotics. Advance diet to full liquids. Add ensure. Possible discharge tomorrow. Current Visit: Yes Status: Acute Code(s): Z87.11 - PERSONAL HISTORY OF PEPTIC ULCER DISEASE SNOMED Code(s): 694204645
[2019-11-29 16:32] LABS: Glucose,Whole Blood 128 mg/dL (75-99)
[2019-11-29 21:05] LABS: Glucose,Whole Blood 132 mg/dL (75-99)
[2019-11-30 06:52] LABS: Glucose,Whole Blood 118 mg/dL (75-99)
[2019-11-30 08:44] VITALS: BP 146/67; PULSE 85; RESP 17; TEMP 98.7
[2019-11-30] MEDS: PANTOPRAZOLE 40 MG/10 ML VIAL IVP SCH (08:55)
[2019-11-30] MEDS: SODIUM CHLORIDE 0.9% 1,000 ML IV SCH (08:59)
[2019-11-30] MEDS: AMPICILLIN-SULBACTAM 3 GM in SODIUM CHLORIDE 0.9% 100 ML IVPB SCH (09:04)
--- NOTE | 2019-11-30 10:09 | P.DS ---
Providers Date of admission: 11/26/19 03:17 Expected date of discharge: 11/30/19 Attending physician: Bereket Posey Primary care physician: Steffi Rowan - Discharge Diagnosis(es) (1) Hx of peptic ulcer Patient admitted for suspected perforation duodenal ulcer. Treated conservatively. Has done quite well. Currently tolerating liquids without difficulty. T-max 99 today. Denies pain. Will discharge on oral antibiotics and antiacid therapy. Follow-up with Dr. Posey 1 week. Current Visit: Yes Status: Acute Patient Condition at Discharge: Serious Plan - Discharge Summary Discharge Rx Participant: Yes New Discharge Prescriptions: No Action Triamcinolone Acetonide [Nasacort] 1 - 2 spray EA NOSTRIL DAILY Lovastatin [Mevacor] 40 mg PO HS Allopurinol [Zyloprim] 100 mg PO DAILY Cetirizine HCl [Zyrtec] 10 mg PO DAILY Lisinopril [Zestril] 10 mg PO DAILY Levobunolol HCl [Betagan 0.5%] 1 drop BOTH EYES DAILY Discharge Medication List Triamcinolone Acetonide [Nasacort] 1 - 2 spray EA NOSTRIL DAILY 02/16/17 [History] Allopurinol [Zyloprim] 100 mg PO DAILY 03/09/17 [History] Cetirizine HCl [Zyrtec] 10 mg PO DAILY 03/09/17 [History] Lovastatin [Mevacor] 40 mg PO HS 03/09/17 [History] Levobunolol HCl [Betagan 0.5%] 1 drop BOTH EYES DAILY 11/26/19 [History] Lisinopril [Zestril] 10 mg PO DAILY 11/26/19 [History] Follow up Appointment(s)/Referral(s): Karly Barnes, MACIE [REFERRING] -
== END 2019-11-30 11:41 | disposition home or self-care (01) | DRG 381 ==
LOC: EC 00:45 → 4SSUR 03:17
PROVIDERS: ADMIT Surgery; ATTEND Surgery
DX: K26.5 Chronic or unspecified duodenal ulcer with perforation (principal); R18.8 Other ascites; I10 Essential (primary) hypertension; M19.90 Unspecified osteoarthritis, unspecified site; M10.9 Gout, unspecified; E11.9 Type 2 diabetes mellitus without complications; Z11.59 Encounter for screening for other viral diseases; Z79.899 Other long term (current) drug therapy; Z88.1 Allergy status to other antibiotic agents; Z90.49 Acquired absence of other specified parts of digestive tract; Z90.89 Acquired absence of other organs; Z87.891 Personal history of nicotine dependence; Z80.9 Family history of malignant neoplasm, unspecified; Z82.3 Family history of stroke; Z87.11 Personal history of peptic ulcer disease; Z97.4 Presence of external hearing-aid
CPT/HCPCS: 36415; 74177; 80053; 81003; 82150; 83605; 83690; 85025; 87040; 96365; 96366; 96367; 96375; 96376; 99285

== ENCOUNTER 2019-12-25 08:16 | Day surgery (SDC) | payer MEDICARE ==
[2019-12-23 09:11] VITALS: BMI 30.9
[~2019-12-25 08:16] MED LIST changes: -LACTATED RINGERS 1,000 ML IV ONE; +LACTATED RINGERS 1,000 ML IV SCH
[2019-12-25 08:35] VITALS: TEMP 97
[2019-12-25 08:44] LABS: Glucose,Whole Blood 105 mg/dL (75-99)
[2019-12-25] MEDS ORDERED: LIDOCAINE 1% (10MG/ML) FOR IV START INTRADERMA ONE (08:46)
[2019-12-25] MEDS ORDERED: PROPOFOL 10 MG/ML 20 ML VIAL IV ONE (09:27)
--- NOTE | 2019-12-25 09:34 | P.GSHP ---
History of Present Illness H&P Date: 12/25/19 Chief Complaint: Peptic ulcer disease This a 73-year-old male who had a recent hospital admission for presumed perforated peptic ulcer. Patient presents today for EGD. Past Medical History Past Medical History: Diabetes Mellitus, Hypertension, Osteoarthritis (OA) Additional Past Medical History / Comment(s): GLAUCOMA , QUETA HEARING AIDS, GOUT, ASBESTOSIS- STATES SOB WITH ACTIVITY., PREVIOUS DIABETES - 50 # WT LOSS & NO LONGER ON RX., HX OF HOSPITALIZATION FOR STOMACH ULCERS (2017), DIARRHEA, HOSPTIALIZED AT [facility] 11/2019 FOR STOMACH ULCER. History of Any Multi-Drug Resistant Organisms: None Reported Past Surgical History: Cholecystectomy, Joint Replacement, Orthopedic Surgery, Tonsillectomy Additional Past Surgical History / Comment(s): ear, QUETA TOTAL KNEES , REVERSE RIGHT SHOULDER Past Anesthesia/Blood Transfusion Reactions: No Reported Reaction, Motion Sickness Past Psychological History: No Psychological Hx Reported Additional Psychological History / Comment(s): . Smoking Status: Former smoker Past Alcohol Use History: Occasional Additional Past Alcohol Use History / Comment(s): STARTED SMOKING AGE 16, SMOKED 1-1.5 PPD. QUIT 1976, USED TO DRINK 6 PACK OF BEER DAILY -QUIT IN OCTOBER 2016, DRINKS OCCASIONALLY NOW. Past Drug Use History: None Reported - Past Family History Father Family Medical History: CVA/TIA Mother Family Medical History: Cancer Medications and Allergies Home Medications Medication Instructions Recorded Confirmed Type Triamcinolone Acetonide [Nasacort] 1 - 2 spray EA NOSTRIL DAILY 02/16/17 12/25/19 History Allopurinol [Zyloprim] 100 mg PO DAILY 03/09/17 12/25/19 History Cetirizine HCl [Zyrtec] 10 mg PO DAILY 03/09/17 12/25/19 History Levobunolol HCl [Betagan 0.5%] 1 drop BOTH EYES DAILY 11/26/19 12/25/19 History Lisinopril [Zestril] 10 mg PO Q48H 11/26/19 12/25/19 History Omeprazole [PriLOSEC] 20 mg PO AC-BRKFST #90 cap 11/30/19 12/25/19 Rx Lovastatin [Altoprev] 40 mg PO HS 12/23/19 12/25/19 History Allergies Allergy/AdvReac Type Severity Reaction Status Date / Time ciprofloxacin [From Cipro] Allergy Rash/Hives Verified 12/23/19 08:45 Surgical - Exam Vital Signs Temp Pulse Resp BP Pulse Ox 97 F L 85 16 120/67 99 12/25/19 08:34 12/25/19 08:34 12/25/19 08:34 12/25/19 08:34 12/25/19 08:34 - General well developed, well nourished, no distress - Eyes PERRL - ENT normal pinna - Neck no masses - Respiratory normal expansion - Cardiovascular Rhythm: regular - Abdomen Abdomen: soft, non tender Results - Labs Abnormal Lab Results - Last 24 Hours (Table) 12/25/19 Range/Units 08:42 POC Glucose (mg/dL) 105 H (75-99) mg/dL Assessment and Plan Assessment: History of peptic ulcer disease. We'll perform EGD.
--- NOTE | 2019-12-25 09:43 | P.OP ---
Date of Procedure: 12/25/19 Preoperative Diagnosis: Peptic ulcer disease Postoperative Diagnosis: Gastritis Procedure(s) Performed: EGD Anesthesia: MAC Surgeon: Bereket Posey Pathology: other (Antrum, esophagus) Condition: stable Disposition: PACU Description of Procedure: The patient's placed on the endoscopy table in the lateral position. He received IV sedation. The gastroscope placed oropharynx and passed in the esophagus and stomach. Scope was then placed through the pylorus. The first and second portion of the duodenum appeared normal. Scope was then brought back the antrum and there is no inflammation. A biopsy was performed. Is no significant peptic ulcer disease. Scope was unretroflexed and remainder of the stomach appeared normal. The GE junction was at 40 cm The distal esophagus. Normal. The proximal esophagus appeared normal. Scope was withdrawn for patient.
[2019-12-25 10:10] VITALS: BP 103/68; PULSE 65; RESP 20
== END 2019-12-25 10:22 | disposition home or self-care (01) ==
LOC: ORWHC2ENDO 08:16
PROVIDERS: ATTEND Surgery
DX: K29.50 Unspecified chronic gastritis without bleeding (principal); K21.9 Gastro-esophageal reflux disease without esophagitis; I10 Essential (primary) hypertension; E11.9 Type 2 diabetes mellitus without complications; G47.33 Obstructive sleep apnea (adult) (pediatric); M19.90 Unspecified osteoarthritis, unspecified site; M10.9 Gout, unspecified; H40.9 Unspecified glaucoma; Z88.1 Allergy status to other antibiotic agents; Z87.11 Personal history of peptic ulcer disease; Z79.899 Other long term (current) drug therapy; Z87.891 Personal history of nicotine dependence; Z96.653 Presence of artificial knee joint, bilateral; Z90.49 Acquired absence of other specified parts of digestive tract; Z90.89 Acquired absence of other organs; Z97.4 Presence of external hearing-aid; Z96.611 Presence of right artificial shoulder joint; Z82.49 Family history of ischemic heart disease and other diseases of the circulatory system; Z80.9 Family history of malignant neoplasm, unspecified
CPT/HCPCS: 88305; 43239; J2704